=== PATIENT | female | born 1960 | race Caucasian/White ===

== ENCOUNTER → 2020-10-18 12:11 | Outpatient (BNVA) | payer OTHER, SELFPAY | PROVIDERS: Visit Provider Internal Medicine | DX: Z76.89 Persons encountering health services in other specified circumstances (principal) ==

== ENCOUNTER 2020-10-31 08:39 | Outpatient (REF) | payer OTHER, SELFPAY ==
[2020-10-31 10:25] LABS: Alanine Aminotransferase 23 U/L (0-31); Albumin Level 3.7 g/dL (3.5-5.0); Alkaline Phosphatase 262 U/L (39-117); Anion Gap 11 (12-20); Aspartate Amino Transferase 27 U/L (5-31); Bilirubin Total 0.3 mg/dL (0.0-1.0); Blood Urea Nitrogen 20 mg/dL (9-16); Carbon Dioxide 30 mmol/L (22-29); Chloride 100 mmol/L (96-108); Estimated Glomerular Filt Rate 52; Glucose Random 94 mg/dL (60-115); Potassium 4.4 mmol/l (3.3-5.1); Sodium 137 mmol/L (135-145); Total Protein 8.8 g/dL (6.5-8.0)
[2020-10-31 10:46] LABS: Vitamin D 25-OH Total 23.9 ng/mL (>30)
[2020-11-01 16:43] LABS: Calcium, Ionized 5.6 mg/dL (4.8-5.6)
[2020-11-02 16:03] LABS: Calcium (PTHI) 10.3 mg/dL (8.6-10.4); PTHI 3 pg/mL (14-64)
== END 2020-10-31 08:40 | disposition home or self-care (01) ==
LOC: HO.LAB 08:39
PROVIDERS: PCP Internal Medicine; Visit Provider Internal Medicine
DX: E83.52 Hypercalcemia (principal); E55.9 Vitamin D deficiency, unspecified
CPT/HCPCS: 80053; 82306; 82330; 83970

== ENCOUNTER → 2020-11-13 13:44 | Outpatient (BNVA) | payer OTHER, SELFPAY | PROVIDERS: Visit Provider Internal Medicine Cardiovascular Disease | DX: Z76.89 Persons encountering health services in other specified circumstances (principal) ==

== ENCOUNTER 2020-11-15 09:25 | Outpatient (REF) | payer OTHER, SELFPAY ==
[2020-11-15 10:41] LABS: Albumin Level 3.8 g/dL (3.5-5.0); Anion Gap 11 (12-20); Blood Urea Nitrogen 19 mg/dL (9-16); Calcium 10.2 mg/dL (8.4-10.2); Carbon Dioxide 32 mmol/L (22-29); Chloride 100 mmol/L (96-108); Estimated Glomerular Filt Rate 51; Glucose Random 105 mg/dL (60-115); Phosphorus 4.3 mg/dL (2.7-4.5); Potassium 4.4 mmol/l (3.3-5.1); Sodium 139 mmol/L (135-145)
[2020-11-15 10:53] LABS: Free T4 (Free Thyroxine) 0.85 ng/dL (0.71-1.85); Thyroid Stimulating Hormone 1.76 uIU/mL (0.32-4.0); Vitamin D 25-OH Total 24.1 ng/mL (>30)
[2020-11-16 12:52] LABS: Calcium (PTHI) 10.4 mg/dL (8.6-10.4); PTHI 4 pg/mL (14-64)
[2020-11-17 22:12] LABS: Prot Elec - Albumin 3.6 g/dL (3.8-4.8); Prot Elec - Alpha1 0.3 g/dL (0.2-0.3); Prot Elec - Alpha2 0.9 g/dL (0.5-0.9); Prot Elec - Beta 1 0.5 g/dL (0.4-0.6); Prot Elec - Beta 2 0.8 g/dL (0.2-0.5); Prot Elec - Gamma 2.5 g/dL (0.8-1.7); Prot Elec - Total Protein 8.6 g/dL (6.1-8.1)
[2020-11-20 11:22] LABS: VITAMIN D (1,25 OH) D3 69 pg/mL; Vit D (1,25-Dihydroxy) Total 69 pg/mL (18-72); Vitamin D (1,25 OH) D2 <8 pg/mL
[2020-11-20 21:53] LABS: Parathyroid Hormone Related Pr 11 pg/mL (14-27)
[2020-11-21 14:57] LABS: Vitamin A 38 mcg/dL (38-98)
[2020-11-22 14:43] LABS: Angiotensin Converting Enzyme 145 U/L (9-67)
== END 2020-11-15 09:26 | disposition home or self-care (01) ==
LOC: HO.LAB 09:25
PROVIDERS: PCP Internal Medicine; Visit Provider Internal Medicine
DX: E83.52 Hypercalcemia (principal)
CPT/HCPCS: 36415; 80048; 82040; 82164; 82306; 82652; 83519; 83970; 84100; 84155; 84165; 84439; 84443; 84590

== ENCOUNTER 2020-11-25 07:29 | Outpatient (REF) | payer OTHER, SELFPAY ==
[2020-11-25 08:29] LABS: Calcium 10.2 mg/dL (8.4-10.2); Estimated Glomerular Filt Rate > 60
[2020-11-29 06:22] LABS: VITAMIN D (1,25 OH) D3 77 pg/mL; Vit D (1,25-Dihydroxy) Total 77 pg/mL (18-72); Vitamin D (1,25 OH) D2 <8 pg/mL
[2020-12-04 06:21] LABS: Angiotensin Converting Enzyme 154 U/L (9-67)
== END 2020-11-25 07:30 | disposition home or self-care (01) ==
LOC: HO.LAB 07:29
PROVIDERS: PCP Internal Medicine; Visit Provider Internal Medicine
DX: D86.9 Sarcoidosis, unspecified (principal); E83.52 Hypercalcemia
CPT/HCPCS: 36415; 82164; 82310; 82565; 82652

== ENCOUNTER → 2020-12-14 11:41 | Outpatient (BNVA) | payer OTHER, SELFPAY | PROVIDERS: PCP Internal Medicine; Visit Provider Internal Medicine ==

== ENCOUNTER → 2021-01-25 15:30 | Outpatient (BNVA) | payer OTHER, SELFPAY | PROVIDERS: PCP Internal Medicine; Visit Provider Internal Medicine ==

== ENCOUNTER 2021-03-05 08:59 | Outpatient (REF) | payer OTHER, SELFPAY ==
--- NOTE | ~2021-03-05 | US_ITS ---
EXAMINATION: US THYROID CLINICAL INFORMATION: Nontoxic multinodular goiter. COMPARISON: Ultrasound soft tissues neck 02/29/2020. TECHNIQUE: Linear transducer grayscale and color Doppler examination with attention to the region of the thyroid. FINDINGS: SIZE: Measurements of the thyroid lobes and nodules are given in sagittal, anteroposterior and transverse dimensions respectively. Right Thyroid Lobe: 5.8 x 2.9 x 2.3 cm, volume 20.2 mL. Previously 5.5 x 2.6 x 2.5 cm, volume 19.1 mL. Parenchyma: The gland echotexture is heterogeneous. Thyroid vascularity is increased. Left Thyroid Lobe: 4.8 x 1.6 x 1.7 cm, volume 6.8 mL. Previously 5.0 x 1.9 x 1.6 cm, volume 7.8 mL. Parenchyma: The gland echotexture is heterogeneous. Thyroid vascularity is normal. Isthmus: 0.4 cm in maximum AP dimension. Previously 0.7 cm. Estimated total number of nodules greater than or equal to 1 cm: 4. Roving Frame Tender nodules are described as follows: 1. Location: Right Upper Size: 1.6 x 1.0 x 1.3 cm, volume 1.1 mL. Previously: 1.4 x 1.1 x 1.1 cm, volume 0.9 mL. Nodule characteristics: Composition: Mixed cystic and solid (1). Echogenicity: Cannot be determined (1). Shape: Not taller than wide (0). Margins: Smooth (0). Echogenic Foci: None (0. ACR TI-RADS total points: 2 ACR TI-RADS category: 2 Significant change in size (>/= 20% in 2 dimensions and minimal increase of 2 mm or 50% or greater increase in volume): None Change in features: None Change in ACR TI-RADS risk category: None 2. Location: Right Mid. Size: 1.5 x 1.4 x 1.7 cm, volume 1.8 mL. Previously: 1.4 x 1.0 x 1.5 cm, volume 1.1 mL. Nodule characteristics: Composition: Solid (2). Echogenicity: Hyperechoic (1). Shape: Not taller than wide (0). Margins: Smooth (0). Echogenic Foci: None (0). ACR TI-RADS total points: 3 ACR TI-RADS category: 3 Significant change in size (>/= 20% in 2 dimensions and minimal increase of 2 mm or 50% or greater increase in volume): None Change in features: None Change in ACR TI-RADS risk category: None 3. Location: Lower pole mid right. Size: 3.3 x 1.8 x 3.7 cm, volume 11.9 mL. Previously: 3.3 x 1.8 x 2.7 cm, volume 8.4 mL. Nodule characteristics: Composition: Mixed cystic and solid (1). Echogenicity: Hyperechoic (1). Shape: Not taller than wide (0). Margins: Smooth (0). Echogenic Foci: None (0). ACR TI-RADS total points: 2 ACR TI-RADS category: 2 Significant change in size (>/= 20% in 2 dimensions and minimal increase of 2 mm or 50% or greater increase in volume): None Change in features: None Change in ACR TI-RADS risk category: None 4. Location: Left lower pole. Size: 1.7 x 0.9 x 1.4 cm, volume 1.1 mL. Previously: 1.6 x 1.2 x 1.2 cm, volume 1.2 mL. Nodule characteristics: Composition: Solid (2). Echogenicity: Hyperechoic (1). Shape: Not taller than wide (0). Margins: Irregular (2). Echogenic Foci: None (0). ACR TI-RADS total points: 5 ACR TI-RADS category: 4 Significant change in size (>/= 20% in 2 dimensions and minimal increase of 2 mm or 50% or greater increase in volume): None Change in features: None Change in ACR TI-RADS risk category: None NODES: No lymphadenopathy is seen in the tissue surrounding the thyroid gland. US/US thyroid IMPRESSION: Heterogeneous hypervascular thyroid gland and multiple right and a solitary left thyroid nodule which are stable. The largest nodule is hypervascular. ACR TI-RADS RECOMMENDATION REFERENCE: Ultrasound-guided fine-needle aspiration, followup ultrasound, no further follow up. * TR1 (0 point) and TR 2 (2 points): No FNA or follow up * TR3 (3 points): FNA if more than or equal to 2.5 cm in maximum dimension, followup ultrasound in 1, 3 and 5 years if 1.5 to 2.4 cm in maximum dimension. * TR4 (4-6 points): FNA if more than or equal to 1.5 cm in maximum dimension, followup ultrasound in 1, 2, 3 and 5 years if 1 to 1.4 cm in maximum dimension. * TR5 (more than or equal to 7 points): FNA if more than or equal to 1 cm in maximum dimension, followup ultrasound every year for 5 years if 0.5 to 0.9 cm in maximum dimension. * TR3, TR4 or TR5 nodules that are below the size threshold for follow up receive no follow up.
== END 2021-03-05 09:00 | disposition home or self-care (01) ==
LOC: HO.US 08:59
PROVIDERS: Visit Provider Internal Medicine
DX: E04.2 Nontoxic multinodular goiter (principal)
CPT/HCPCS: 76536

== ENCOUNTER → 2021-04-12 11:50 | Outpatient (BNVA) | payer OTHER, SELFPAY | PROVIDERS: PCP Internal Medicine; Visit Provider Internal Medicine ==

== ENCOUNTER → 2021-04-17 09:23 | Outpatient (REF) | payer OTHER, SELFPAY ==
--- NOTE | 2021-04-17 09:28 | CA_ITS ---
Transthoracic Echocardiogram Patient (Last, First, Middle): Emilia Levy S Gender: Female Date of : 1960 Age: 61 Procedure Date: 04/17/2021 Procedure Type: Transthoracic Echocardiogram Location: OP Height: 157.48 cm Weight: 81.65 kg BSA: 1.83 m2 Heart Rate: bpm BP: 124 / 60 mmHg Make Up Worker: Referring MD: Abe Sagastume MD Symptoms: Z95.0 - Presence of cardiac pacemaker Study Quality: Fair ECG Rhythm: Ventriculary paced rhythm Conclusions: - Visually estimated LVEF about 50%. - There is mildly increased left ventricular wall thickness. - No obvious valvular pathology seen on this study. Findings Left Ventricle Normal left ventricular cavity size. There is mildly increased left ventricular wall thickness. The left ventricular systolic function is mildly decreased. There is paradoxical septal motion consistent with a right ventricular pacemaker. E/E prime ratio is between 8 and 15 consistent with indeterminate filling pressures. Evidence suggests grade I (mild) diastolic dysfunction. Visually estimated LVEF about 50%. Right Ventricle Normal right ventricular cavity size and systolic function. There is a pacemaker wire seen in the right ventricle. Atria The left atrium is normal in size. The right atrium is normal in size. Aortic Valve There is a normal trileaflet aortic valve. There is no aortic valve stenosis. There is no aortic valve regurgitation. Mitral Valve The mitral valve appears normal. There is trace mitral valve regurgitation. There is no mitral valve stenosis. Pulmonic Valve The pulmonic valve was not well visualized. Tricuspid Valve Normal tricuspid valve structure. There is mild tricuspid valve regurgitation. The pulmonary artery systolic pressure is normal. Great Vessels The asc aorta is normal in size. Venous The inferior vena cava is normal in size and collapses greater than 50% with inspiration. Pericardium/Pleural There is no evidence of pericardial effusion. Prior Study Comparison No significant change compared to prior study dated: 02/29/2020. Recommendations, Care & Conclusions No obvious valvular pathology seen on this study. Measurements 2D Linear Measurements IVSd: 1.27 0.6-0.9/0.6-1.0 cm LVIDd: 4.49 3.9-5.3/4.2-5.9 cm LVIDd Index: 2.45 2.4-3.2/2.2-3.1 cm/m2 LVIDs: 2.88 2.0-3.6 cm LVPWd: 1.24 0.7-1.1 cm Ao Root: 2.70 2.1-3.5 cm LA Diam: 3.50 2.7-3.8/3.0-4.0 cm LAIDs Index: 1.91 1.5-2.3 cm/m2 LV Mass: 262.58 67-162/88-224 g LV Mass Index: 143.49 43-95/49-115 g/m2 LVOT Diam: 2.20 3.0+(-)1.3 cm 2D Systolic Function EF 4C: 53.10 >55% EF 2C: 44.40 >55% EF BiP: 50.00 >55% Mitral Valve MV Pk E: 0.84 MV PK A: 0.78 MV Decel Time: 142.00 E/A: 1.10 E'Lateral: 7.29 E'Medial: 4.57 E/E' Med: 18.30 E/E' Lat: 11.50 PHT: 42.00 MVA PHT: 5.24 Decel [place]: 5.89 Aortic Valve AoV Pk Roger: 1.26 AoV Mn Roger: 0.80 AoV VTI: 0.25 AoV Pk Grad: 6.00 Aov Mn Grad: 3.00 KATI Cont.VTI: 2.62 LVOT LVOT Pk Roger: 0.81 LVOT Mn Roger: 0.54 LVOT VTI: 0.17 LVOT Pk Grad: 3.00 LVOT Mn Grad: 1.00 LVOT Diam: 2.20 LVOT Area: 3.80 Diastolic Function MV Pk E: 0.84 MV Pk A: 0.78 E/A: 1.10 E'Medial: 4.57 E/E' Med: 18.30 E' Laterial: 7.29 E/E' Lat: 11.50 Tricuspid Valve TR Pk Roger: 2.39 TR Pk Grad: 23.00 RA Press: 3.00 RVSP: 26.00 Great Vessels Aorta Ao Root-2D: 2.70 2.0-3.7 cm Ao Asc: 3.10 2.1-3.4 cm Pulmonary Valve PV Pk Roger: 0.91 Peak PV Grad: 3.00 Updated in Other Vendor System with Status of Final Nelson Woodard MD electronically signed on 04/17/2021 2:20:00 PM with status of Final
== END ==
LOC: HO.CARD 09:23
PROVIDERS: Visit Provider Internal Medicine Cardiovascular Disease
DX: Z95.0 Presence of cardiac pacemaker (principal)
CPT/HCPCS: 93306

== ENCOUNTER → 2021-05-08 15:00 | Outpatient (BNVA) | payer OTHER, SELFPAY | PROVIDERS: PCP Internal Medicine; Visit Provider Internal Medicine Cardiovascular Disease ==

== ENCOUNTER 2021-06-18 14:52 | Outpatient (REF) | payer OTHER, SELFPAY ==
--- NOTE | ~2021-06-18 | US_ITS ---
EXAMINATION: US THYROID CLINICAL INFORMATION: Nontoxic multinodular goiter. COMPARISON: Ultrasound soft tissue head/neck thyroid dated 03/05/2021 and 02/29/2020. TECHNIQUE: Linear transducer grayscale and color Doppler examination with attention to the region of the thyroid. FINDINGS: SIZE: Measurements of the thyroid lobes and nodules are given in sagittal, anteroposterior and transverse dimensions respectively. Right Thyroid Lobe: 5.9 x 3.1 x 3.1 cm, volume 29.7 mL. Previously 5.8 x 2.9 x 2.3 cm, volume 20.2 mL. Parenchyma: The gland echotexture is heterogeneous. Thyroid vascularity is increased. Left Thyroid Lobe: 4.4 x 1.6 x 1.4 cm, volume 5.2 mL. Previously 4.8 x 1.6 x 1.7 cm, volume 6.8 mL. Parenchyma: The gland echotexture is heterogeneous. Thyroid vascularity is increased. Isthmus: 0.7 cm in maximum AP dimension. Previously 0.4 cm. Estimated total number of nodules greater than or equal to 1 cm: 4. [place]et Bucker nodules are described as follows: 1. Location: Left mid. Size: 1.2 x 0.6 x 1.0 cm, volume 0.4 mL. Previously: 1.7 x 0.9 x 1.4 cm, volume 1.1 mL. Nodule characteristics: Composition: Solid/almost completely solid (2). Echogenicity: Hypoechoic (2). Shape: Not taller than wide (0). Margins: Ill-defined (0). Echogenic Foci: None (0). ACR TI-RADS total points: 4 Previous: 5 ACR TI-RADS category: 4 Previous: 4 Significant change in size (>/= 20% in 2 dimensions and minimal increase of 2 mm or 50% or greater increase in volume): Change in features: Change in ACR TI-RADS risk category: No 2. Location: Right superior. Size: 1.5 x 1.0 x 1.3 cm, volume 1.0 mL. Previously: 1.6 x 1.0 x 1.3 cm, volume 1.1 mL. Nodule characteristics: Composition: Solid (2). Echogenicity: Isoechoic (1). Shape: Not taller than wide (0). Margins: Smooth (0). Echogenic Foci: None (0). ACR TI-RADS total points: 3 Previous: 2 ACR TI-RADS category: 3 Previous: 2 Significant change in size (>/= 20% in 2 dimensions and minimal increase of 2 mm or 50% or greater increase in volume): Change in features: Change in ACR TI-RADS risk category: Yes 3. Location: Right mid. Size: 1.5 x 1.3 x 2.0 cm, volume 2.0 mL. Previously: 1.5 x 1.4 x 1.7 cm, volume 1.8 mL. Nodule characteristics: Composition: Solid/almost completely solid (2). Echogenicity: Isoechoic (1). Shape: Not taller than wide (0). Margins: Smooth (0). Echogenic Foci: None (0). ACR TI-RADS total points: 3 Previous: 3 ACR TI-RADS category: 3 Previous: 3 Significant change in size (>/= 20% in 2 dimensions and minimal increase of 2 mm or 50% or greater increase in volume): Change in features: Change in ACR TI-RADS risk category: No 4. Location: Right inferior. Size: 3.4 x 1.9 x 3.3 cm, volume 11.0 mL. Previously: 3.3 x 1.8 x 3.7 cm, volume 8.4 mL. Nodule characteristics: Composition: Solid (2). Echogenicity: Isoechoic (1). Shape: Not taller than wide (0). Margins: Smooth (0). Echogenic Foci: None (0). ACR TI-RADS total points: 3 Previous: 2 ACR TI-RADS category: 3 Previous: 2 Significant change in size (>/= 20% in 2 dimensions and minimal increase of 2 mm or 50% or greater increase in volume): Change in features: Change in ACR TI-RADS risk category: Yes NODES: No lymphadenopathy is seen in the tissue surrounding the thyroid gland. US/US thyroid IMPRESSION: Heterogeneous hypervascular thyroid gland. The right lobe is enlarged. There is no change in the bilateral thyroid nodules.. ACR TI-RADS RECOMMENDATION REFERENCE: Ultrasound-guided fine-needle aspiration, followup ultrasound, no further follow up. * TR1 (0 point) and TR 2 (2 points): No FNA or follow up * TR3 (3 points): FNA if more than or equal to 2.5 cm in maximum dimension, followup ultrasound in 1, 3 and 5 years if 1.5 to 2.4 cm in maximum dimension. * TR4 (4-6 points): FNA if more than or equal to 1.5 cm in maximum dimension, followup ultrasound in 1, 2, 3 and 5 years if 1 to 1.4 cm in maximum dimension. * TR5 (more than or equal to 7 points): FNA if more than or equal to 1 cm in maximum dimension, followup ultrasound every year for 5 years if 0.5 to 0.9 cm in maximum dimension. * TR3, TR4 or TR5 nodules that are below the size threshold for follow up receive no follow up.
== END 2021-06-18 14:53 | disposition home or self-care (01) ==
LOC: HO.US 14:52
PROVIDERS: Visit Provider Internal Medicine
DX: E04.2 Nontoxic multinodular goiter (principal)
CPT/HCPCS: 76536

== ENCOUNTER → 2021-10-30 13:01 | Outpatient (BNVA) | payer OTHER, SELFPAY | PROVIDERS: PCP Internal Medicine; Referring Provider Internal Medicine; Visit Provider Internal Medicine Cardiovascular Disease ==

== ENCOUNTER 2021-12-05 09:14 | Outpatient (REF) | payer OTHER, SELFPAY ==
--- NOTE | ~2021-12-05 | XR_ITS ---
EXAMINATION: XR SHOULDER, LEFT CLINICAL INFORMATION: Sarcoidosis. COMPARISON: Chest x-ray dated 12/05/2021 TECHNIQUE: AP external rotation, Grashey, scapular Y, and axillary views of the left shoulder. FINDINGS: The bones and soft tissues are normal. No fracture. Glenohumeral and acromioclavicular alignment is anatomic with normal joint space. No abnormal soft tissue calcifications. Imaged left lung shows diffuse bronchovascular prominence XR/XR shoulder LT min 2V IMPRESSION: * No acute fracture or dislocation. * No suspicious osseous lesions. * Diffuse prominence of pulmonary parenchymal interstitium. Recommend dedicated departmental radiographs of the chest
[2021-12-05 11:32] LABS: Hematocrit 41.3 % (37.0-47.0); Mean Corpuscular HGB Conc 31.5 g/dl (31.0-35.0); Mean Corpuscular Hemoglobin 27.1 pg (27.0-33.0); Mean Platelet Volume 10.9 fL (9.4-12.3); Platelet Count 361 X10*3/uL (160-400); Red Cell Distribution Width 14.2 % (11.0-16.0); White Blood Count 5.9 X10*3/uL (4.8-10.8)
[2021-12-05 12:03] LABS: Estimated Average Glucose 114 mg/dL; Hemoglobin A1C 148.6826 umol/L; Hemoglobin A1c % 5.6 %
[2021-12-05 12:05] LABS: Vitamin D 25-OH Total 30.7 ng/mL (>30)
[2021-12-05 12:18] LABS: Thyroid Stimulating Hormone 1.66 uIU/mL (0.32-4.0)
[2021-12-05 12:29] LABS: Alanine Aminotransferase 32 U/L (0-31); Albumin Level 4.1 g/dL (3.5-5.0); Alkaline Phosphatase 223 U/L (39-117); Anion Gap 13 (12-20); Aspartate Amino Transferase 31 U/L (5-31); Bilirubin Total 0.5 mg/dL (0.0-1.0); Blood Urea Nitrogen 13 mg/dL (9-16); Calcium 9.8 mg/dL (8.4-10.2); Carbon Dioxide 30 mmol/L (22-29); Chloride 102 mmol/L (96-108); Cholesterol 199 mg/dL; Estimated Glomerular Filt Rate > 60; Glucose Fasting 100 mg/dL (60-99); HDL Cholesterol 53 mg/dL; LDL Cholesterol Calculated 122 mg/dl; Potassium 4.6 mmol/L (3.3-5.1); Sodium 140 mmol/L (135-145); Total Protein 9.1 g/dL (6.5-8.0); Triglycerides 124 mg/dL
== END 2021-12-05 09:15 | disposition home or self-care (01) ==
LOC: HO.HMGCLDS 09:14
PROVIDERS: Internal Medicine; Visit Provider Internal Medicine
DX: D86.9 Sarcoidosis, unspecified (principal); E04.2 Nontoxic multinodular goiter; R19.5 Other fecal abnormalities; M25.512 Pain in left shoulder
CPT/HCPCS: 36415; 73030; 80053; 80061; 82306; 83036; 84439; 84443; 85027

== ENCOUNTER → 2022-03-06 13:03 | Outpatient (REF) | payer OTHER, SELFPAY ==
--- NOTE | 2022-03-06 13:08 | CA_ITS ---
Transthoracic Echocardiogram Patient (Last, First, Middle): Emilia Levy S Gender: Female Date of : 1960 Age: 61 Procedure Date: 03/06/2022 Procedure Type: Transthoracic Echocardiogram Location: OP Height: 157.48 cm Weight: 79.38 kg BSA: 1.81 m2 Heart Rate: bpm BP: 140 / 86 mmHg Workforce Development Specialist: ROBERT Referring MD: Abe Sagastume MD Symptoms: I42.9 - Cardiomyopathy, unspecified Study Quality: Fair Conclusions: - 1. Normal LV systolic function with impaired relaxation filling pattern 2. Normal cardiac valvular Doppler 3. Normal RV systolic pressure 4. No gross pericardial effusion Findings Left Ventricle Normal left ventricular size, thickness, and systolic function. The visually estimated ejection fraction is between 55-60%. There is paradoxical septal motion consistent with a right ventricular pacemaker. Spectral Doppler is indicative of an impaired relaxation filling pattern. E/E prime ratio is between 8 and 15 consistent with indeterminate filling pressures. Right Ventricle Normal right ventricular cavity size and systolic function. There is a pacemaker wire seen in the right ventricle. Atria The left atrium is likely dilated. The right atrium is normal in size. A pacemaker wire is identified in the right atrium. Aortic Valve Normal aortic valve structure and function. There is no aortic valve stenosis. There is no aortic valve regurgitation. Mitral Valve Normal mitral valve structure and function. There is trace mitral valve regurgitation. There is no mitral valve stenosis. Pulmonic Valve The pulmonic valve was not well visualized. Tricuspid Valve Likely normal tricuspid valve structure and function. There is mild tricuspid valve regurgitation. The right ventricular systolic pressure is normal. The right ventricular systolic pressure is 25 mmHg. Normal right atrial pressure. There is no evidence of pulmonary hypertension. Great Vessels All visible segments of the aorta are normal in size. The pulmonary artery was not well visualized. Venous The inferior vena cava is normal in size and collapses greater than 50% with inspiration. Pericardium/Pleural There is no evidence of pericardial effusion. Prior Study Comparison Changes noted compared to prior study dated: 04/17/2021. LV systolic function is in normal range Measurements 2D Linear Measurements IVSd: 0.98 0.6-0.9/0.6-1.0 cm LVIDd: 4.24 3.9-5.3/4.2-5.9 cm LVIDd Index: 2.34 2.4-3.2/2.2-3.1 cm/m2 LVIDs: 2.67 2.0-3.6 cm LVPWd: 1.08 0.7-1.1 cm LA Diam: 3.70 2.7-3.8/3.0-4.0 cm LAIDs Index: 2.04 1.5-2.3 cm/m2 LV Mass: 218.36 67-162/88-224 g LV Mass Index: 120.64 43-95/49-115 g/m2 LVOT Diam: 2.10 3.0+(-)1.3 cm 2D Systolic Function EF 4C: 59.10 >55% EF 2C: 59.30 >55% EF BiP: 60.80 >55% Mitral Valve MV Pk E: 0.92 MV PK A: 0.90 MV Decel Time: 227.00 E/A: 1.00 E'Lateral: 6.09 E'Medial: 4.46 E/E' Med: 20.60 E/E' Lat: 15.10 PHT: 66.00 MVA PHT: 3.33 Decel Shoshone: 4.05 Aortic Valve AoV Pk Roger: 1.57 AoV Mn Roger: 1.20 AoV VTI: 0.36 AoV Pk Grad: 10.00 Aov Mn Grad: 6.00 KATI Cont.VTI: 2.31 LVOT LVOT Pk Roger: 1.02 LVOT Mn Roger: 0.75 LVOT VTI: 0.24 LVOT Pk Grad: 4.00 LVOT Mn Grad: 2.00 LVOT Diam: 2.10 LVOT Area: 3.46 Diastolic Function MV Pk E: 0.92 MV Pk A: 0.90 E/A: 1.00 E'Medial: 4.46 E/E' Med: 20.60 E' Laterial: 6.09 E/E' Lat: 15.10 Right Ventricle TAPSE (mm): 18.90 TVS' Roger: 12.10 Tricuspid Valve TR Pk Roger: 2.32 TR Pk Grad: 22.00 RA Press: 3.00 RVSP: 25.00 Great Vessels Aorta Sinus of Valsalva: 3.10 2.0-3.[address] Ridge: 2.46 1.7-3.4 cm Ao Asc: 2.90 2.1-3.4 cm Ao Arch: 2.70 Updated in Other Vendor System with Status of Final Abe Sagastume MD electronically signed on 03/07/2022 12:32:59 PM with status of Final
== END ==
LOC: HO.CARD 13:03
PROVIDERS: PCP Internal Medicine; Visit Provider Internal Medicine Cardiovascular Disease
DX: I42.9 Cardiomyopathy, unspecified (principal)
CPT/HCPCS: 93306

== ENCOUNTER → 2022-05-07 12:38 | Outpatient (BNVA) | payer OTHER, SELFPAY | PROVIDERS: PCP Internal Medicine; Referring Provider Internal Medicine; Visit Provider Internal Medicine Cardiovascular Disease | DX: Z45.018 Encounter for adjustment and management of other part of cardiac pacemaker (principal) | CPT/HCPCS: 93280 ==

== ENCOUNTER → 2023-05-08 08:57 | Outpatient (BNVA) | payer OTHER, SELFPAY | PROVIDERS: PCP Internal Medicine; Referring Provider Internal Medicine; Visit Provider Internal Medicine Cardiovascular Disease | DX: I42.9 Cardiomyopathy, unspecified (principal); Z95.0 Presence of cardiac pacemaker | CPT/HCPCS: 93005; 93280 ==

== ENCOUNTER → 2023-07-31 23:59 | Outpatient (BNV) | payer OTHER, SELFPAY ==
--- NOTE | 2023-07-31 11:17 | A.OFFVIS_ITS ---
Intake Intake Visit Reasons: Remote Device Check- [facility] Allergies No Known Allergies [No Known Allergies*] Allergy (Verified 01/28/22 10:45) PFSH Medical History Abnormal echocardiogram Abnormal SPEP Abnormal x-ray Annual physical exam Cardiac pacemaker in situ Complete heart block Hypercalcemia Left shoulder pain Multinodular thyroid Vitamin D deficiency Surgical History Hx of cardiac pacemaker Hx of cholecystectomy Hx of tubal ligation Family History Mother Diabetes CVD (cardiovascular disease) Stroke Myocardial infarction Maternal Grandmother Diabetes Father Unknown family medical history Social History Housing: Apartment Are you a primary health care marketing specialist to a significant other at home: No Alcohol intake: current Alcohol intake frequency: holidays/special occasions only Patient Tobacco Use Status: Never used Tobacco e-Cigarette/Vaping Use: Never Used Current occupational status: unemployed Office Procedures Cardiac Device Check Cardiac Device Check Details: Remote pacemaker report generated 07/31/2023. Pacemaker function is adequate [id number] Cardiac Device Interrogation, pacemaker Procedure code (CPT) selection complete Coding Level of Care Code Procedure Only CPT Codes Cardiac Device Check - Cardiac Device 12: [id number] Cardiac Device Interrogation, pacemaker ([id number])
== END ==
PROVIDERS: PCP Internal Medicine; Visit Provider Internal Medicine Cardiovascular Disease
DX: I42.9 Cardiomyopathy, unspecified (principal); Z95.0 Presence of cardiac pacemaker
CPT/HCPCS: 93294

== ENCOUNTER 2023-10-10 11:53 | Outpatient (AMB) | payer OTHER, SELFPAY ==
[2023-10-10 11:59] VITALS: BP 140/80; PULSE 78; TEMP 36.8; O2SAT 98; BMI 35.8
--- NOTE | 2023-10-10 11:59 | AM.OFFWIN_ITS ---
Intake Vital Signs 10/10/23 11:59 Height 5 ft 2 in Weight 196 lb BMI 35.8 BP 140/80 H Blood Pressure Location Rt brachial Position Sitting Pulse 78 Pulse Source Pulse Oximeter Temp 98.3 F Temp Source Temporal Artery Scan Pulse Oximetry (%) 98 Oxygen Delivery Method Room Air Intake Visit Reasons: EP Cough 3 weeks Intake Note: pt is here for c/o cough for 3 weeks Patient Tobacco Use Status: Never used Tobacco Allergies No Known Allergies [No Known Allergies*] Allergy (Verified 10/10/23 12:21) Medication List - Last Reconciled 10/10/23 by Anthony Ortiz MD azithromycin take 500 mg today (day 1), then 250 mg for 4 days (days 2-5) PO cholecalciferol (vitamin D3) 25 mcg PO DAILY metoprolol tartrate 25 mg PO DAILY multivitamin (Daily Multi-Vitamin tablet) 1 tab PO DAILY omega-3 fatty acids 1,000 mg PO DAILY pravastatin 40 mg PO DAILY prednisone 60 mg (3 x 20 mg) PO DAILY Do you need a note to return to daycare/school/sports/work: Yes HPI EP Cough 3 weeks HPI Details Patient presents for a sick visit. Reporting symptoms of sinus conges tion, sore throat and difficulty swallowing. Low-grade fever. No family member is sick. No recent travel. Patient reports symptoms of malaise and fatigue. PENDING SALE TO [facility] Medical History Abnormal echocardiogram Abnormal SPEP Abnormal x-ray Annual physical exam Cardiac pacemaker in situ Complete heart block Hypercalcemia Left shoulder pain Multinodular thyroid Vitamin D deficiency Surgical History Hx of cardiac pacemaker Hx of cholecystectomy Hx of tubal ligation Family History Mother Diabetes CVD (cardiovascular disease) Stroke Myocardial infarction Maternal Grandmother Diabetes Father Unknown family medical history Housing: Apartment Are you a primary career center director to a significant other at home: No Alcohol intake: current Alcohol intake frequency: holidays/special occasions only Patient Tobacco Use Status: Never used Tobacco e-Cigarette/Vaping Use: Never Used Current occupational status: unemployed Physical Exam Vital Signs: Last Vital Signs Temp 98.3 F 10/10/23 11:59 Pulse 78 10/10/23 11:59 BP 140/80 H 10/10/23 11:59 Pulse Ox 98 10/10/23 11:59 Oxygen Delivery Method Room Air 10/10/23 11:59 BMI result Body Mass Index 35.8 Const General: cooperative and healthy appearing Nutritional Appearance: well nourished Orientation/consciousness: patient oriented x3 Limitations: no limitations HEENT Head: Yes normal to inspection Eyes General: appearance normal, both eyes and all related structures Neck Neck: Yes normal visual inspection Chest Chest palpation & inspection: normal palpation of entire chest wall Resp Effort & Inspection: normal respiratory effort Neuro General: patient oriented x3 Assessment & Plan Assessment & Plan (1) Upper respiratory tract infection: Code(s): J06.9 - Acute upper respiratory infection, unspecified Plan: Antibiotics ordered. Increase fluid intake. Tylenol for aches and pains. If symptoms worsen, follow-up here for a recheck. Medications: New azithromycin take 500 mg today (day 1), then 250 mg for 4 days (days 2-5) PO 6 tabs 0RF prednisone 60 mg (3 x 20 mg) PO DAILY 9 tabs 0RF Coding Level of Care Code Est Pt Level 3 (07784) Diagnoses Upper respiratory tract infection J06.9
== END 2023-10-10 12:44 | disposition home or self-care (01) ==
PROVIDERS: PCP Internal Medicine; Visit Provider Internal Medicine
DX: J06.9 Acute upper respiratory infection, unspecified (principal)
CPT/HCPCS: 99213

== ENCOUNTER 2023-10-10 12:53 | Outpatient (REF) | payer OTHER, SELFPAY ==
[2023-10-10 14:21] LABS: Influenza A PCR NEGATIVE (Negative); Influenza B PCR NEGATIVE (Negative); Resp Syncy Virus RNA Qual PCR NEGATIVE (Negative); SARS COV2 PCR INHOUSE NEGATIVE (Negative)
== END 2023-10-10 12:54 | disposition home or self-care (01) ==
LOC: HO.LNP 12:53
PROVIDERS: Visit Provider Internal Medicine
DX: Z11.52 Encounter for screening for COVID-19 (principal); R09.89 Other specified symptoms and signs involving the circulatory and respiratory systems; Z20.822 Contact with and (suspected) exposure to COVID-19
CPT/HCPCS: 0241U

== ENCOUNTER → 2023-10-30 23:59 | Outpatient (BNV) | payer OTHER, SELFPAY ==
--- NOTE | 2023-10-30 10:31 | MHC.OFFVIS ---
Intake Intake Visit Reasons: Remote Device Check- [facility] Allergies No Known Allergies [No Known Allergies*] Allergy (Verified 10/10/23 12:21) PFSH Medical History Abnormal echocardiogram Abnormal SPEP Abnormal x-ray Annual physical exam Cardiac pacemaker in situ Complete heart block Hypercalcemia Left shoulder pain Multinodular thyroid Vitamin D deficiency Surgical History Hx of cardiac pacemaker Hx of cholecystectomy Hx of tubal ligation Family History Mother Diabetes CVD (cardiovascular disease) Stroke Myocardial infarction Maternal Grandmother Diabetes Father Unknown family medical history Social History Housing: Apartment Are you a primary manager intensive care unit to a significant other at home: No Alcohol intake: current Alcohol intake frequency: holidays/special occasions only Patient Tobacco Use Status: Never used Tobacco e-Cigarette/Vaping Use: Never Used Current occupational status: unemployed Office Procedures Cardiac Device Check Cardiac Device Check Details: Remote pacemaker report generated 10/30/2023. Pacemaker function is adequate. Two episodes of high ventricular rate which are suggestive of pacemaker mediated tachycardia [id number] Cardiac Device Interrogation, pacemaker Procedure code (CPT) selection complete Assessment & Plan Assessment & Plan (1) Cardiac pacemaker in situ: Comment: Dual-chamber [facility] pacemaker for complete heart block Code(s): Z95.0 - Presence of cardiac pacemaker Plan: See above Coding Level of Care Code Procedure Only Diagnoses Cardiac pacemaker in situ Z95.0 CPT Codes Cardiac Device Check - Cardiac Device 12: [id number] Cardiac Device Interrogation, pacemaker ([id number])
== END ==
PROVIDERS: PCP Internal Medicine; Visit Provider Internal Medicine Cardiovascular Disease
DX: I42.9 Cardiomyopathy, unspecified (principal); Z95.0 Presence of cardiac pacemaker
CPT/HCPCS: 93294

== ENCOUNTER → 2024-01-29 23:59 | Outpatient (BNV) | payer OTHER, SELFPAY ==
--- NOTE | 2024-01-29 18:27 | A.OFFVIS_ITS ---
Intake Intake Visit Reasons: Remote Device Check- [facility] Allergies No Known Allergies [No Known Allergies*] Allergy (Verified 10/10/23 12:21) PFSH Medical History Abnormal echocardiogram Abnormal SPEP Abnormal x-ray Annual physical exam Cardiac pacemaker in situ Complete heart block Hypercalcemia Left shoulder pain Multinodular thyroid Vitamin D deficiency Surgical History Hx of cardiac pacemaker Hx of cholecystectomy Hx of tubal ligation Family History Mother Diabetes CVD (cardiovascular disease) Stroke Myocardial infarction Maternal Grandmother Diabetes Father Unknown family medical history Social History Housing: Apartment Are you a primary housekeeper caregiver to a significant other at home: No Alcohol intake: current Alcohol intake frequency: holidays/special occasions only Patient Tobacco Use Status: Never used Tobacco e-Cigarette/Vaping Use: Never Used Current occupational status: unemployed Office Procedures Cardiac Device Check Cardiac Device Check Details: Remote implantable loop recorder report generated 01/29/2024. Pacemaker function is adequate. Ventricularly pacer dependent [id number] Cardiac Device Interrogation, pacemaker Procedure code (CPT) selection complete Assessment & Plan Assessment & Plan (1) Cardiac pacemaker in situ: Comment: Dual-chamber [facility] pacemaker for complete heart block Code(s): Z95.0 - Presence of cardiac pacemaker Plan: See above Coding Level of Care Code Procedure Only Diagnoses Cardiac pacemaker in situ Z95.0 CPT Codes Cardiac Device Check - Cardiac Device 12: [id number] Cardiac Device Interrogation, pacemaker ([id number])
== END ==
PROVIDERS: PCP Internal Medicine; Visit Provider Internal Medicine Cardiovascular Disease
DX: I44.2 Atrioventricular block, complete (principal); Z95.0 Presence of cardiac pacemaker
CPT/HCPCS: 93294

== ENCOUNTER → 2024-04-29 23:59 | Outpatient (BNV) | payer OTHER, SELFPAY ==
--- NOTE | 2024-05-03 13:37 | A.OFFVIS_ITS ---
Intake Visit Reasons: Remote Device Check- [facility] Allergies No Known Allergies [No Known Allergies*] Allergy (Verified 10/10/23 12:21) PFSH Medical History Abnormal echocardiogram Abnormal SPEP Abnormal x-ray Annual physical exam Cardiac pacemaker in situ Complete heart block Hypercalcemia Left shoulder pain Multinodular thyroid Vitamin D deficiency Surgical History Hx of cardiac pacemaker Hx of cholecystectomy Hx of tubal ligation Family History Mother Diabetes CVD (cardiovascular disease) Stroke Myocardial infarction Maternal Grandmother Diabetes Father Unknown family medical history Social History Housing: Apartment Are you a primary home health aide caregiver to a significant other at home: No Alcohol intake: current Alcohol intake frequency: holidays/special occasions only Patient Tobacco Use Status: Never used Tobacco e-Cigarette/Vaping Use: Never Used Current occupational status: unemployed Office Procedures Cardiac Device Check Cardiac Device Check Details: Remote pacemaker report generated 04/29/2024. Pacemaker function is adequate. Ventricular pacing 100% of time [id number] Cardiac Device Interrogation, pacemaker Procedure code (CPT) selection complete Assessment & Plan Assessment & Plan (1) Cardiac pacemaker in situ: Comment: Dual-chamber [facility] pacemaker for complete heart block Code(s): Z95.0 - Presence of cardiac pacemaker Category: Medical Plan: see above Coding Level of Care Code Procedure Only Diagnoses Cardiac pacemaker in situ Z95.0 CPT Codes Cardiac Device Check - Cardiac Device 12: [id number]-[id number] Cardiac Device Interrogation, pacemaker ([id number])
== END ==
PROVIDERS: PCP Internal Medicine; Visit Provider Internal Medicine Cardiovascular Disease
DX: I44.2 Atrioventricular block, complete (principal); Z95.0 Presence of cardiac pacemaker
CPT/HCPCS: 93294

== ENCOUNTER 2024-05-06 08:30 | Outpatient (AMB) | payer OTHER, SELFPAY ==
--- NOTE | 2024-05-06 08:43 | MHC.OFFVIS ---
Vital Signs 05/06/24 08:44 Height 5 ft 2 in Weight 180 lb 12.465 oz BMI 33.1 BP 120/80 Blood Pressure Location Lt brachial Position Sitting Pulse 60 Intake Visit Reasons: 1 year follow up Intake Note: 1 year follow-up with ekg and [facility] c/o increased fatigue has not had any rx for months Iron Installer Required: No Allergies No Known Allergies [No Known Allergies*] Allergy (Verified 10/10/23 12:21) Medication List - Last Reconciled 05/06/24 by Abe Sagastume MD cholecalciferol (vitamin D3) 25 mcg PO DAILY multivitamin (Daily Multi-Vitamin tablet) 1 tab PO DAILY HPI Comments Details: Emilia comes for follow-up. She has no new cardiac symptoms. Denies any symptoms of worsening shortness of breath, orthopnea, PND, leg edema. She ran out of metoprolol and she has not seen a primary care physician who would not refill her prescriptions. She also did not call or office. She denies any exertional chest pain. Denies any prolonged palpitation irregular heartbeat. Her remote monitoring has been within normal limits. [facility] Medical History Abnormal x-ray Left shoulder pain Annual physical exam Abnormal SPEP Abnormal echocardiogram Complete heart block Cardiac pacemaker in situ Vitamin D deficiency Hypercalcemia Multinodular thyroid Surgical History Hx of cardiac pacemaker Hx of cholecystectomy Hx of tubal ligation Family History Mother Diabetes CVD (cardiovascular disease) Stroke Myocardial infarction Maternal Grandmother Diabetes Father Unknown family medical history Social History Housing: Apartment Are you a primary animal care technician to a significant other at home: No Alcohol intake: current Alcohol intake frequency: holidays/special occasions only Patient Tobacco Use Status: Never used Tobacco e-Cigarette/Vaping Use: Never Used Current occupational status: unemployed Review of Systems Const Denies chills, Denies fatigue, Denies fever(s), Denies frequent falls, Denies weakness, Denies weight gain and Denies weight loss ENT Denies dizziness Card Denies chest pain, Denies leg edema, Denies lightheadedness, Denies palpitations, Denies dyspnea, Denies dyspnea on exertion, Denies orthopnea and Denies other (loss of consciousness) Resp Denies cough, Denies dyspnea and Denies dyspnea on exertion GI Denies hematochezia and Denies change in stool character Musc Denies abnormal gait, Denies muscle weakness, Denies numbness, Denies radiating pain into limb and Denies tingling Neuro Denies abnormal gait, Denies dizziness, Denies frequent falls, Denies numbness, Denies tingling and Denies weakness Endo Denies fatigue and Denies palpitations Physical Exam Vital Signs: Last Vital Signs Pulse 60 05/06/24 08:44 BP 120/80 05/06/24 08:44 BMI result Body Mass Index 33.1 Const General: cooperative, comfortable, no acute distress, alert and awake Nutritional Appearance: obese Orientation/consciousness: patient oriented x3 Limitations: no limitations Neck Neck: Yes trachea midline, Yes supple and Yes no JVD Resp Effort & Inspection: normal respiratory effort Auscultation: clear to auscultation bilaterally Cardio Jugular venous distension: no JVD Palpation: normal PMI Rate: regular rate Rhythm: regular rhythm Heart sounds: S1 normal heart sound present and S2 normal heart sound present GI Auscultation: normal bowel sounds Skin General skin exam: no rashes or lesions noted Neuro General: patient oriented x3 and no focal motor deficits Extrem General: Yes no clubbing, cyanosis or edema Psych Appearance: grossly normal Office Procedures Cardiac Device Check Cardiac Device Check Details: [facility] pacemaker in place. Programmed in DDDR at 60 beats per minute. Ventricularly pacer dependent. Atrial pacing about 19 % of time. No arrhythmias detected. Atrial ventricular pacing thresholds adequate and in auto capture mode. Atrial sensing is excellent. Pacing lead impedance is stable. Battery life is 4.3 years [id number] Cardiac Device Check, pacemaker dual lead Procedure code (CPT) selection complete EKG Details: EKG shows AV dual paced rhythm [id number], Complete Assessment & Plan Assessment & Plan (1) Cardiac pacemaker in situ: Comment: Dual-chamber [facility] pacemaker for complete heart block Code(s): Z95.0 - Presence of cardiac pacemaker Category: Medical Plan: Cardiac pacemaker in-situ for complete heart block. Patient is pacer dependent in the ventricle. Pacemaker is working well. Reprogrammed for adequate functioning. Follow-up remotely every 3 months and follow up in the clinic in 1 year's time. Advised to call me with any new symptoms. (2) Cardiomyopathy: Code(s): I42.9 - Cardiomyopathy, unspecified Category: Medical Plan: Cardiomyopathy which had developed after the pacemaker placement most likely due to asynchronous LV contraction related to RV pacing. This was corrected with metoprolol therapy and last echocardiogram showed normalized LV EF. Importance of metoprolol therapy was discussed. Will resume the same. Follow-up echocardiogram near future. Avoidance of cardiotoxic agent was discussed. Signs and symptoms of heart failure were discussed. Will follow up in the clinic in 1 year's time, sooner p.r.n.. Thank you for allowing me to partake in her care Orders: Orders CA echo transthoracic complete Today I42.9 - Cardiomyopathy, unspecified Medications: New metoprolol succinate ER (Toprol XL) 25 mg PO DAILY 30 tabs 5RF metoprolol succinate ER (Toprol XL) 25 mg PO DAILY 90 tabs 3RF I42.9 - Cardiomyopathy, unspecified Coding Level of Care Code Est Pt Level 4 (72041) Diagnoses Cardiac pacemaker in situ Z95.0 Cardiomyopathy I42.9 CPT Codes Cardiac Device Check - Cardiac Device 2: [id number] Cardiac Device Check, pacemaker dual lead ([id number]) EKG - CPT: 87134-Ihabzkrrikcrzsmvc, Complete ([id number])
[2024-05-06 08:44] VITALS: BP 120/80; PULSE 60; BMI 33.1
== END 2024-05-06 09:08 | disposition home or self-care (01) ==
PROVIDERS: PCP Internal Medicine; Visit Provider Internal Medicine Cardiovascular Disease
DX: I42.9 Cardiomyopathy, unspecified (principal); Z95.0 Presence of cardiac pacemaker; Z91.148 Patient's other noncompliance with medication regimen for other reason
CPT/HCPCS: 93010; 93280; 99214

== ENCOUNTER → 2024-05-06 08:30 | Outpatient (BNVA) | payer OTHER, SELFPAY | PROVIDERS: PCP Internal Medicine; Visit Provider Internal Medicine Cardiovascular Disease | DX: I42.9 Cardiomyopathy, unspecified (principal); Z45.018 Encounter for adjustment and management of other part of cardiac pacemaker | CPT/HCPCS: 93005; 93280 ==

== ENCOUNTER → 2024-07-22 15:01 | Outpatient (RCR) | payer OTHER, SELFPAY ==
[2020-11-27 10:59] VITALS: BP 139/92; PULSE 86; RESP 12; TEMP 36.5; O2SAT 97; BMI 34.0
[2020-11-27 12:16] LABS: MANUAL DIFF FLAG NO
[2020-11-27 12:30] LABS: Basophils Percent Auto 0.7 % (0-2); Eosinophils Absolute Auto 0.4 X10*3/uL (0.0-0.4); Eosinophils Percent Auto 6.1 % (0-4); Hematocrit 37.4 % (37-47); Hemoglobin 11.8 g/dl (12.0-16.0); Imm Gran Abs Auto 0.02 X10*3/uL (0.00-0.03); Imm Gran Pct Auto 0.3 % (0.0-0.4); Lymphocytes Percent Auto 18.1 % (20-40); Mean Corpuscular HGB Conc 31.6 g/dl (31.0-35.0); Mean Corpuscular Hemoglobin 27.1 pg (27.0-33.0); Mean Corpuscular Volume 85.8 fL (80-98); Monocytes Absolute Auto 0.7 X10*3/uL (0.1-1.2); Neutrophils Absolute Auto 3.6 X10*3/uL (2.0-8.3); Neutrophils Percent Auto 62.8 % (45-73); Platelet Count 354 X10*3/uL (160-400); Red Blood Count 4.36 X10*6/uL (4.20-5.50); Red Cell Distribution Width 13.8 % (11.0-16.0); White Blood Count 5.8 X10*3/uL (4.8-10.8)
[2020-11-27 12:51] LABS: Alanine Aminotransferase 26 U/L (0-31); Albumin Level 3.8 g/dL (3.5-5.0); Alkaline Phosphatase 268 U/L (39-117); Anion Gap 13 (12-20); Aspartate Amino Transferase 27 U/L (5-31); Bilirubin Total 0.4 mg/dL (0.0-1.0); Blood Urea Nitrogen 18 mg/dL (9-16); Calcium 10.1 mg/dL (8.4-10.2); Carbon Dioxide 28 mmol/L (22-29); Chloride 101 mmol/L (96-108); Creatinine Clr Calc Pharmacy 70.9; Estimated Glomerular Filt Rate > 60; Glucose Random 83 mg/dL (60-115); Sodium 137 mmol/L (135-145)
--- NOTE | 2020-11-27 15:33 | P.CNHO_ITS ---
Subjective - Subjective Chief complaint: Abnormal blood test Patient: new to practice Consult date: 11/27/20 Primary Care Provider: Deanna Lee MD HPI - Consult Narrative Reason for consult: Abnormal serum electrophoresis Narrative: Emilia Levy is a 60 year old female who is referred for evaluation of abnormal blood work. She was being worked up for mild hypercalcemia, a serum electrophoresis revealed elevation of beta 2 globulins. Patient denies any symptoms such as excess fatigue, bone pain, exertional chest pain or shortness of breath. She is in her usual state of health. She is not on any new medications. Review of Systems - Constitutional Reports as per HPI, Reports no additional constitutional complaints - Eyes Denies change in vision - ENT Denies dysphagia, Denies vertigo, Denies dizziness - Cardiovascular Denies chest pain with activity, Denies irregular heart rhythm, Denies lightheadedness - Respiratory Denies cough, Denies dyspnea - Gastrointestinal Denies bright, red blood in stools, Denies change in bowel habits [facility] Medical History: Medical History (Last Updated 11/28/20 @ 09:05 by Tamia Morel MD) Abnormal echocardiogram Abnormal SPEP Cardiac pacemaker in situ Complete heart block Hypercalcemia Multinodular thyroid Sarcoidosis Vitamin D deficiency Family History: Family History (Last Updated 11/27/20 @ 11:03 by Theresa Landers) Mother Diabetes CVD (cardiovascular disease) Maternal Grandmother Diabetes Surgical History: Surgical History (Last Reviewed 10/18/20 @ 14:17 by Hailee Anne DO) Hx of cardiac pacemaker Hx of cholecystectomy Hx of tubal ligation Smoking status: Never smoker Home Medications and Allergies Home Medications Medication Instructions Recorded Confirmed Type pravastatin 40 mg tablet 40 mg PO DAILY 10/18/20 11/27/20 History Allergies Allergy/AdvReac Type Severity Reaction Status Date / Time No Known Allergies Allergy Verified 10/18/20 14:09 [No Known Allergies*] pravastatin AdvReac Unknown swelling Verified 10/18/20 14:09 of lower ext Physical Exam Vital signs: Vital Signs Temp 97.7 F 11/27/20 10:59 Pulse 86 11/27/20 10:59 Resp 12 11/27/20 10:59 BP 139/92 H 11/27/20 10:59 Pulse Ox 97 11/27/20 10:59 Intake & Output 11/26/20 11/27/2021 18:59 06:59 18:59 Other: Weight 84.3 kg Weight 84.3 kg Hem/Onc Consult Result - Labs CBC & Chem 7: 11/27/20 11:56 11/27/20 11:56 Labs: Short CBC 11/27/20 Range/Units 11:56 WBC 5.8 (4.8-10.8) X10*3/uL Hgb 11.8 L (12.0-16.0) g/dl Hct 37.4 (37-47) % Plt Count 354 (160-400) X10*3/uL BMP 11/27/20 11:56 Sodium 137 Potassium 5.0 Chloride 101 Carbon Dioxide 28 BUN 18 H Creatinine 0.86 Calcium 10.1 Liver Function 11/27/20 Range/Units 11:56 Total Bilirubin 0.4 (0.0-1.0) mg/dL AST 27 (5-31) U/L ALT 26 (0-31) U/L Alkaline Phosphatase 268 H (39-117) U/L Albumin 3.8 (3.5-5.0) g/dL Assessment and Plan (1) Abnormal SPEP Status: Acute 1. This is a 60-year-old woman found to have mild increase in gamma globulins on serum protein electrophoresis. This was performed as part of workup for calcium levels in the upper range of normal. She is asymptomatic and does not have anemia or renal dysfunction. I have submitted serum immunofixation, kappa lambda light chain ratio. She has persistent elevation of alkaline phosphatase level with normal liver functions. Isoenzyme level to be added. Imaging study with liver ultrasound and bone scan/bone density depending on above testing. She denies personal history of sarcoidosis, she states her mother has it. I thank you for this referral.
--- NOTE | 2021-06-01 15:50 | P.PNHO_ITS ---
Medical Summary - Medical Summary Date of Service: 06/01/21 Chief complaint: Follow-up Medical Summary: Diagnosis: Abnormal serum electrophoresis Interval History Interval history: Patient is here in follow-up. She is doing well and has no complaints today. Review of Systems - Constitutional Reports as per HPI, Reports no additional constitutional complaints - Cardiovascular Reports no additional cardiovascular complaints - Respiratory Reports no additional respiratory complaints - Gastrointestinal Reports no additional gastrointestinal complaints - Neurologic Denies vertigo, Denies dizziness [facility] Medical History: Medical History (Last Reviewed 05/08/21 @ 15:26 by Abe Sagastume MD) Abnormal echocardiogram Abnormal SPEP Cardiac pacemaker in situ Complete heart block Hypercalcemia Multinodular thyroid Sarcoidosis Vitamin D deficiency Family History: Family History (Last Reviewed 05/08/21 @ 15:26 by Abe Sagastume MD) Mother Diabetes CVD (cardiovascular disease) Stroke Myocardial infarction Maternal Grandmother Diabetes Father Unknown family medical history Surgical History: Surgical History (Last Reviewed 05/08/21 @ 15:26 by Abe Sagastume MD) Hx of cardiac pacemaker Hx of cholecystectomy Hx of tubal ligation Social History: Social History (Last Reviewed 05/08/21 @ 15:26 by Abe Sagastume MD) Living Situation History: Are you a primary animal care taker to a significant other at home: No Alcohol History: Alcohol intake: current Alcohol History Details: Alcohol intake frequency: holiday/special occasion Tobacco History: Patient Tobacco Use Status: Never used Tobacco Substance Use History: Use of substances other than those prescribed or required for medical reasons : No Domestic Abuse History: Have you been hit, kicked, punched, or otherwise hurt by someone within the past year? If so, by whom?: No Do you feel safe in your current relationship?: Yes Nutrition Assessment: Recently lost weight without trying: No Nutrition Risks: No Nutritional Risk Patient : No : No Poor oral hygiene: No Oncology Screenings - ECOG Performance Status ECOG Performance Status: 0 Home Medications and Allergies Home Medications Medication Instructions Recorded Confirmed Type multivitamin 1 tab PO DAILY 01/25/21 06/01/21 History omega-3 fatty acids 1,000 mg 1,000 mg PO DAILY 01/25/21 06/01/21 History capsule cholecalciferol (vitamin D3) 25 25 mcg PO DAILY 04/12/21 06/01/21 History mcg (1,000 unit) capsule Allergies Allergy/AdvReac Type Severity Reaction Status Date / Time No Known Allergies Allergy Verified 04/12/21 14:05 [No Known Allergies*] Exam Vital signs: Vital Signs Temp 97.7 F 11/27/20 10:59 Pulse 86 11/27/20 10:59 Resp 12 11/27/20 10:59 BP 139/92 H 11/27/20 10:59 Pulse Ox 97 11/27/20 10:59 Weight 84.3 kg Body Mass Index 34.0 Data - Labs CBC & Chem 7: 11/27/20 11:56 11/27/20 11:56 Labs: 11/27/20 11:56 Complete Blood Count Auto Diff Routine Comprehensive Met. Panel Routine Laboratory Last Values WBC 5.8 X10*3/uL (4.8-10.8) 11/27/20 11:56 RBC 4.36 X10*6/uL (4.20-5.50) 11/27/20 11:56 Hgb 11.8 g/dl (12.0-16.0) L 11/27/20 11:56 Hct 37.4 % (37-47) 11/27/20 11:56 MCV 85.8 fL (80-98) 11/27/20 11:56 MCH 27.1 pg (27.0-33.0) 11/27/20 11:56 MCHC 31.6 g/dl (31.0-35.0) 11/27/20 11:56 RDW 13.8 % (11.0-16.0) 11/27/20 11:56 Plt Count 354 X10*3/uL (160-400) 11/27/20 11:56 MPV 10.0 fL (9.4-12.3) 11/27/20 11:56 Immature Gran % (Auto) 0.3 % (0.0-0.4) 11/27/20 11:56 Neut % (Auto) 62.8 % (45-73) 11/27/20 11:56 Lymph % (Auto) 18.1 % (20-40) L 11/27/20 11:56 [place] % (Auto) 12.0 % (2-11) H 11/27/20 11:56 Eos % (Auto) 6.1 % (0-4) H 11/27/20 11:56 Baso % (Auto) 0.7 % (0-2) 11/27/20 11:56 Lymph # (Auto) 1.0 X10*3/uL (1.2-4.9) L 11/27/20 11:56 [place] # (Auto) 0.7 X10*3/uL (0.1-1.2) 11/27/20 11:56 Eos # (Auto) 0.4 X10*3/uL (0.0-0.4) 11/27/20 11:56 Baso # (Auto) 0.0 X10*3/uL (0.0-0.2) 11/27/20 11:56 Abs Immat Gran (auto) 0.02 X10*3/uL (0.00-0.03) 11/27/20 11:56 Absolute Neuts (auto) 3.6 X10*3/uL (2.0-8.3) 11/27/20 11:56 Absolute Nucleated RBC 0.000 X10*3/uL (0.0-0.012) 11/27/20 11:56 Nucleated RBC % (auto) 0.0 /100WBC (0.0-0.2) 11/27/20 11:56 Sodium 137 mmol/L (135-145) 11/27/20 11:56 Potassium 5.0 mmol/l (3.3-5.1) 11/27/20 11:56 Chloride 101 mmol/L (96-108) 11/27/20 11:56 Carbon Dioxide 28 mmol/L (22-29) 11/27/20 11:56 Anion Gap 13 (12-20) 11/27/20 11:56 BUN 18 mg/dL (9-16) H 11/27/20 11:56 Creatinine 0.86 mg/dL (0.5-1.4) 11/27/20 11:56 Estim Creat Clear Calc 70.9 11/27/20 11:56 Estimated GFR > 60 11/27/20 11:56 Random Glucose 83 mg/dL (60-115) 11/27/20 11:56 Calcium 10.1 mg/dL (8.4-10.2) 11/27/20 11:56 Total Bilirubin 0.4 mg/dL (0.0-1.0) 11/27/20 11:56 AST 27 U/L (5-31) 11/27/20 11:56 ALT 26 U/L (0-31) 11/27/20 11:56 Alkaline Phosphatase 268 U/L (39-117) H 11/27/20 11:56 Total Protein 9.0 g/dL (6.5-8.0) H 11/27/20 11:56 Albumin 3.8 g/dL (3.5-5.0) 11/27/20 11:56 Progress Note: A/P (1) Abnormal SPEP Status: Acute Assessment and plan: 1. This is a 61-year-old woman found to have mild increase in gamma globulins on serum protein electrophoresis. This was performed as part of workup for calcium levels in the upper range of normal. She is asymptomatic and does not have anemia or renal dysfunction. I have submitted serum immunofixation, kappa lambda light chain ratio. Results will be discussed with the patient. - Time Spent With Patient Time Spent with Patient (in minutes): 15
[2021-06-01 15:56] VITALS: BMI 36.8
[2021-06-01 15:57] VITALS: BP 142/81; PULSE 84; RESP 18; TEMP 36.3; O2SAT 97
--- NOTE | 2021-06-01 16:32 | MHC.HEMONC ---
pt seen by Dr Morel. Labs drawn but results pending. No newc/o or midications for this pt. F/U in November.
[2021-06-01 16:40] LABS: Alanine Aminotransferase 36 U/L (0-31); Alkaline Phosphatase 223 U/L (39-117); Anion Gap 11 (12-20); Aspartate Amino Transferase 34 U/L (5-31); Bilirubin Total 0.4 mg/dL (0.0-1.0); Blood Urea Nitrogen 20 mg/dL (9-16); Calcium 9.6 mg/dL (8.4-10.2); Carbon Dioxide 30 mmol/L (22-29); Chloride 103 mmol/L (96-108); Creatinine Clr Calc Pharmacy 57.6; Estimated Glomerular Filt Rate 51; Glucose Random 159 mg/dL (60-115); Potassium 4.2 mmol/L (3.3-5.1); Sodium 140 mmol/L (135-145); Total Protein 8.8 g/dL (6.5-8.0)
[2021-06-05 15:30] LABS: Kappa Light Chain, Free Serum 41.6 mg/L (3.3-19.4); Kappa/Lambda Lt Ch Free Ratio 1.14 (0.26-1.65); Lambda Light Chain, Free Serum 36.4 mg/L (5.7-26.3)
[2021-06-06 19:42] LABS: IgA 851 mg/dL (47-310); IgG 2665 mg/dL (600-1640); IgM 80 mg/dL (50-300)
[2021-06-06 22:27] LABS: Beta-2 Microglobulin, Serum 3.54 mg/L (< OR = 2.51)
--- NOTE | 2021-12-03 16:44 | MHC.HEMONC ---
Nurse called pt at home after she did not arrive for scheduled Hem f/u appt, pt said she was unaware of appt, requested to book an appt on an upcoming , but nurse replied that Dr. Morel does not work on . Pt said she would need to call back to schedule after reviewing her schedule. Nurse gave her CB #.
== END | disposition home or self-care (01) ==
LOC: HO.ONC 11-27 10:34
PROVIDERS: PCP Internal Medicine; Referring Provider Internal Medicine; Visit Provider Internal Medicine
DX: R77.8 Other specified abnormalities of plasma proteins (principal); E83.52 Hypercalcemia
CPT/HCPCS: 36415; 80053; 82232; 82784; 83520; 85025; 86334; 99204

== ENCOUNTER → 2024-07-29 23:59 | Outpatient (BNV) | payer OTHER, SELFPAY ==
--- NOTE | 2024-07-29 10:08 | MHC.OFFVIS ---
Intake Visit Reasons: Remote device check- [facility] Allergies No Known Allergies [No Known Allergies*] Allergy (Verified 10/10/23 12:21) PFSH Medical History Abnormal x-ray Left shoulder pain Annual physical exam Abnormal SPEP Abnormal echocardiogram Complete heart block Cardiac pacemaker in situ Vitamin D deficiency Hypercalcemia Multinodular thyroid Surgical History Hx of cardiac pacemaker Hx of cholecystectomy Hx of tubal ligation Family History Mother Diabetes CVD (cardiovascular disease) Stroke Myocardial infarction Maternal Grandmother Diabetes Father Unknown family medical history Social History Housing: Apartment Are you a primary healthcare financial analyst to a significant other at home: No Alcohol intake: current Alcohol intake frequency: holidays/special occasions only Patient Tobacco Use Status: Never used Tobacco e-Cigarette/Vaping Use: Never Used Current occupational status: unemployed Office Procedures Cardiac Device Check Cardiac Device Check Details: Remote pacemaker report generated 07/29/2024. Patient ventricularly pacer dependent. Pacemaker function is adequate [id number] Cardiac Device Interrogation, pacemaker Procedure code (CPT) selection complete Assessment & Plan Assessment & Plan (1) Cardiac pacemaker in situ: Comment: Dual-chamber [facility] pacemaker for complete heart block Code(s): Z95.0 - Presence of cardiac pacemaker Category: Medical Plan: See above Coding Level of Care Code Procedure Only Diagnoses Cardiac pacemaker in situ Z95.0 CPT Codes Cardiac Device Check - Cardiac Device 12: [id number] Cardiac Device Interrogation, pacemaker ([id number])
== END ==
PROVIDERS: PCP Internal Medicine; Visit Provider Internal Medicine Cardiovascular Disease
DX: Z45.018 Encounter for adjustment and management of other part of cardiac pacemaker (principal)
CPT/HCPCS: 93294

== ENCOUNTER → 2024-10-28 23:59 | Outpatient (BNV) | payer OTHER, SELFPAY ==
--- NOTE | 2024-11-11 16:05 | MHC.OFFVIS ---
Intake Visit Reasons: Remote device check- [facility] Allergies No Known Allergies [No Known Allergies*] Allergy (Verified 10/10/23 12:21) PFSH Medical History Abnormal x-ray Left shoulder pain Annual physical exam Abnormal SPEP Abnormal echocardiogram Complete heart block Cardiac pacemaker in situ Vitamin D deficiency Hypercalcemia Multinodular thyroid Surgical History Hx of cardiac pacemaker Hx of cholecystectomy Hx of tubal ligation Family History Mother Diabetes CVD (cardiovascular disease) Stroke Myocardial infarction Maternal Grandmother Diabetes Father Unknown family medical history Social History Housing: Apartment Are you a primary point of care technician to a significant other at home: No Alcohol intake: current Alcohol intake frequency: holidays/special occasions only Patient Tobacco Use Status: Never used Tobacco e-Cigarette/Vaping Use: Never Used Current occupational status: unemployed Office Procedures Cardiac Device Check Cardiac Device Check Details: Remote pacemaker report generated October 28/2024. Pacemaker function is adequate patient ventricularly pacer dependent [id number] Cardiac Device Interrogation, pacemaker Procedure code (CPT) selection complete Assessment & Plan Assessment & Plan (1) Cardiac pacemaker in situ: Comment: Dual-chamber [facility] pacemaker for complete heart block Code(s): Z95.0 - Presence of cardiac pacemaker Category: Medical Plan: See above Coding Level of Care Code Procedure Only Diagnoses Cardiac pacemaker in situ Z95.0 CPT Codes Cardiac Device Check - Cardiac Device 12: 00703-Ijudtx Cardiac Device Interrogation, pacemaker ([id number])
== END ==
PROVIDERS: PCP Internal Medicine; Visit Provider Internal Medicine Cardiovascular Disease
DX: I44.2 Atrioventricular block, complete (principal); Z95.0 Presence of cardiac pacemaker
CPT/HCPCS: 93294

== ENCOUNTER → 2025-01-27 23:59 | Outpatient (BNV) | payer OTHER, SELFPAY ==
--- NOTE | 2025-01-31 16:03 | A.OFFVIS_ITS ---
Intake Visit Reasons: Remote device check- [facility] Allergies No Known Allergies [No Known Allergies*] Allergy (Verified 10/10/23 12:21) PFSH Medical History Abnormal x-ray Left shoulder pain Annual physical exam Abnormal SPEP Abnormal echocardiogram Complete heart block Cardiac pacemaker in situ Vitamin D deficiency Hypercalcemia Multinodular thyroid Surgical History Hx of cardiac pacemaker Hx of cholecystectomy Hx of tubal ligation Family History Mother Diabetes CVD (cardiovascular disease) Stroke Myocardial infarction Maternal Grandmother Diabetes Father Unknown family medical history Social History Housing: Apartment Are you a primary patient care director to a significant other at home: No Alcohol intake: current Alcohol intake frequency: holidays/special occasions o nly Patient Tobacco Use Status: Never used Tobacco e-Cigarette/Vaping Use: Never Used Current occupational status: unemployed Office Procedures Cardiac Device Check Cardiac Device Check Details: Remote pacemaker report generated 01/27/2025. Patient ventricularly pacer dependent. Pacemaker function is adequate [id number] Cardiac Device Interrogation, pacemaker Procedure code (CPT) selection complete Assessment & Plan Assessment & Plan (1) Cardiac pacemaker in situ: Comment: Dual-chamber [employer] [facility] pacemaker for complete heart block Code(s): Z95.0 - Presence of cardiac pacemaker Category: Medical Plan: See above Coding Level of Care Code Procedure Only Diagnoses Cardiac pacemaker in situ Z95.0 CPT Codes Cardiac Device Check - Cardiac Device 12: [id number] Cardiac Device Interrogation, pacemaker ([id number])
== END ==
PROVIDERS: PCP Internal Medicine; Visit Provider Internal Medicine Cardiovascular Disease
DX: I44.2 Atrioventricular block, complete (principal); Z95.0 Presence of cardiac pacemaker
CPT/HCPCS: 93294

== ENCOUNTER 2025-04-25 13:32 | Outpatient (AMB) | payer OTHER, SELFPAY ==
--- NOTE | 2025-04-25 13:36 | A.OFFVIS_ITS ---
Vital Signs 04/25/25 13:37 Height 5 ft 2 in Weight 176 lb 5.917 oz BMI 32.3 BP 120/70 Blood Pressure Location Lt brachial Position Sitting Pulse 104 H Intake Visit Reasons: 1 yr follow up r/s 05/12 Intake Note: 1 year follow-up with ekg feeling good Testing Consultant Required: No Allergies No Known Allergies [No Known Allergies*] Allergy (Verified 10/10/23 12:21) Medication List - Last Reconciled 04/25/25 by Abe Sagastume MD cholecalciferol (vitamin D3) 25 mcg PO DAILY metoprolol succinate ER (Toprol XL) 25 mg PO DAILY multivitamin (Daily Multi-Vitamin tablet) 1 tab PO DAILY pravastatin 40 mg PO DAILY HPI Comments Details: Emilia comes for follow-up. She has not had any cardiac symptoms. Today noted her heart rate to be on the elevated side with sinus tachycardia. She says she has been suffering from cold. She denies any fever or chills. No cough productive of phlegm. Says has been hydrating well. Taking all her medication although she has ran out of pravastatin. Not sure if she has ran out of her metoprolol as well. No prolonged palpitation irregular heartbeat. No lightheadedness, syncope. No exertional chest pain or shortness of breath. No orthopnea, PND. [facility] Medical History Abnormal x-ray Left shoulder pain Annual physical exam Abnormal SPEP Abnormal echocardiogram Complete heart block Cardiac pacemaker in situ Vitamin D deficiency Hypercalcemia Multinodular thyroid Surgical History Hx of cardiac pacemaker Hx of cholecystectomy Hx of tubal ligation Family History Mother Diabetes CVD (cardiovascular disease) Stroke Myocardial infarction Maternal Grandmother Diabetes Father Unknown family medical history Social History Housing: Apartment Are you a primary care director to a significant other at home: No Alcohol intake: current Alcohol intake frequency: holidays/special occasions only Patient Tobacco Use Status: Never used Tobacco e-Cigarette/Vaping Use: Never Used Current occupational status: unemployed Review of Systems Const Denies chills, Denies fatigue, Denies fever(s), Denies frequent falls, Denies weakness, Denies weight gain and Denies weight loss ENT Denies dizziness Card Denies chest pain, Denies leg edema, Denies lightheadedness, Denies palpitations, Denies dyspnea, Denies dyspnea on exertion, Denies orthopnea and Denies other (loss of consciousness) Resp Denies cough, Denies dyspnea and Denies dyspnea on exertion GI Denies hematochezia and Denies change in stool character Musc Denies abnormal gait, Denies muscle weakness, Denies numbness, Denies radiating pain into limb and Denies tingling Neuro Denies abnormal gait, Denies dizziness, Denies frequent falls, Denies numbness, Denies tingling and Denies weakness Endo Denies fatigue and Denies palpitations Physical Exam Vital Signs: Last Vital Signs Pulse 104 H 04/25/25 13:37 BP 120/70 04/25/25 13:37 BMI result Body Mass Index 32.3 Const General: cooperative, comfortable, no acute distress, alert and awake Nutritional Appearance: obese Orientation/consciousness: patient oriented x3 Limitations: no limitations Neck Neck: Yes trachea midline, Yes supple and Yes no JVD Resp Effort & Inspection: normal respiratory effort Auscultation: clear to auscultation bilaterally Cardio Jugular venous distension: no JVD Palpation: normal PMI Rate: regular rate Rhythm: regular rhythm Heart sounds: S1 normal heart sound present and S2 normal heart sound present GI Auscultation: normal bowel sounds Skin General skin exam: no rashes or lesions noted Neuro General: patient oriented x3 and no focal motor deficits Extrem General: Yes no clubbing, cyanosis or edema Psych Appearance: grossly normal Office Procedures Cardiac Device Check Cardiac Device Check Details: Dual-chamber [facility] pacemaker in place. Programmed in DDDR at 60 beats per minute. Ventricular pacing 100% time. One episode of nonsustained ventricular tachycardia noted. Atrial ventricular pacing thresholds excellent and in auto capture mode. Atrial ventricular sensing is adequate. Pacing lead impedance is stable. Battery life is 3.3 years [id number] Cardiac Device Check, pacemaker dual lead Procedure code (CPT) selection complete EKG Details: EKG shows sinus tachycardia with ventricularly paced rhythm with RV pacing [id number], Complete Assessment & Plan Assessment & Plan (1) Cardiac pacemaker in situ: Comment: Dual-chamber [facility] pacemaker for complete heart block Code(s): Z95.0 - Presence of cardiac pacemaker Category: Medical Plan: Cardiac pacemaker in-situ, for complete heart block. Pacemaker is working well. Patient is pacer dependent. Had prior history of cardiomyopathy which has improved. Now noted nonsustained ventricular tachycardia. Will obtain echocardiogram to evaluate for systolic dysfunction and/or regional wall motion abnormality. (2) Nonsustained ventricular tachycardia: Code(s): I47.29 - Other ventricular tachycardia Category: Medical Plan: Noted nonsustained ventricular tachycardia. Question cardiomyopathy process. Question infiltrative process given that she has history of complete heart block. There has been no clear other systemic evidence of sarcoidosis. Will follow-up echocardiogram near future. Can consider cardiac MRI. Will maximize metoprolol to 50 mg daily as tolerated. Advised to avoid stimulants. Advised to maintain adequate hydration. Follow up in the clinic otherwise in 1 year's time, sooner p.r.n.. Thank you for allowing me to partake in her care Orders: Orders CA echo transthoracic complete Today I47.29 - Other ventricular tachycardia Medications: New pravastatin 40 mg PO DAILY 90 tabs 3RF metoprolol succinate ER (Toprol XL) 50 mg PO DAILY 90 tabs 3RF Coding Level of Care Code Est Pt Level 4 (81123) Complex EM visit Add On G2211 Diagnoses Cardiac pacemaker in situ Z95.0 Nonsustained ventricular tachycardia I47.29 CPT Codes Cardiac Device Check - Cardiac Device 2: [id number] Cardiac Device Check, pacemaker dual lead ([id number]) EKG - CPT: 80492-[id number], Complete ([id number])
[2025-04-25 13:37] VITALS: BP 120/70; PULSE 104; BMI 32.3
== END 2025-04-25 13:59 | disposition home or self-care (01) ==
LOC: HO.HCS 13:32
PROVIDERS: PCP Internal Medicine; Visit Provider Internal Medicine Cardiovascular Disease
DX: I47.29 Other ventricular tachycardia (principal); Z95.0 Presence of cardiac pacemaker
CPT/HCPCS: 93010; 93280; 99214

== ENCOUNTER → 2025-04-25 13:32 | Outpatient (BNVA) | payer OTHER, SELFPAY | PROVIDERS: PCP Internal Medicine; Visit Provider Internal Medicine Cardiovascular Disease | DX: I47.29 Other ventricular tachycardia (principal); Z45.010 Encounter for checking and testing of cardiac pacemaker pulse generator [battery] | CPT/HCPCS: 93005; 93280 ==

== ENCOUNTER 2025-04-28 13:58 | Emergency (ER) | payer OTHER, SELFPAY ==
--- NOTE | ~2025-04-28 | XR_ITS ---
EXAMINATION: XR WRIST, RIGHT CLINICAL INFORMATION: trauma COMPARISON: None available. TECHNIQUE: PA, lateral, spot scaphoid, oblique views of the right wrist. FINDINGS: There is sclerosis, marginal osteophytes, and narrowing of the first carpal metacarpal and first metacarpal phalangeal joints. There is also of chronic fragmentation of the radial margin of the trapezium. No fracture line is identified. On the oblique view, there is calcific density projecting into the soft tissues adjacent to the radial styloid. XR/XR wrist RT min 3V IMPRESSION: Calcification adjacent to the base of the radial styloid on the oblique view is probably chronic in nature. Correlate for focal tenderness. First CMC and MCP joint osteoarthritis. Electronically signed by: Sam Khan MD 04/28/2025 02:21 PM EDT
--- NOTE | ~2025-04-28 | XR_ITS ---
EXAMINATION: XR HAND, RIGHT CLINICAL INFORMATION: trauma COMPARISON: None available. TECHNIQUE: PA, lateral, and oblique views of the right hand. FINDINGS: PIP joints demonstrate moderate to severe narrowing and marginal osteophyte formation most pronounced in the second digit. PIP joints are relatively preserved MCP joints are unremarkable. There is mild narrowing and marginal osteophyte formation involving the first metacarpophalangeal joint. There is also faint linear calcific density paralleling the first metacarpal head likely representing chondrocalcinosis. First carpal metacarpal joint demonstrates narrowing, sclerosis, and osteophytes. There is also adjacent soft tissue corticated fragment. XR/XR hand RT min 3V IMPRESSION: Osteoarthritis involving the DIP joints and first carpometacarpal and MCP joint. Chondrocalcinosis is visible involving the first metacarpal head. Electronically signed by: Sam Khan MD 04/28/2025 02:25 PM EDT
[2025-04-28 13:59] VITALS: BP 143/73; PULSE 82; RESP 16; TEMP 37.1; O2SAT 97; BMI 29.1
--- NOTE | 2025-04-28 14:01 | ED.GENADULT ---
HPI - General Adult General Chief complaint: Extremity Injury, Upper Stated complaint: fall r hand inj Time Seen by Provider: 04/28/25 14:24 Source: patient, RN notes reviewed and old records reviewed Mode of arrival: ambulatory Limitations: no limitations History of Present Illness ED Provider: Haleigh HPI narrative: 65-year-old female presents for evaluation of right hand and wrist pain. Patient reports that she tripped this morning and fell onto her outstretched right hand. She has pain to both the wrist and hand pain Denies head strike, loss of consciousness pain She is not anticoagulated. Her pain is 06/26 Related Data Home Medications ?Medication ?Instructions ?Recorded ?Confirmed multivitamin (Daily Multi-Vitamin 1 tab PO DAILY 01/25/21 04/25/25 tablet) cholecalciferol (vitamin D3) 25 25 mcg PO DAILY 04/12/21 04/25/25 mcg (1,000 unit) capsule Previous Rx's ?Medication ?Instructions ?Recorded metoprolol succinate 50 mg 50 mg PO DAILY #90 tabs 04/25/25 tablet,extended release 24 hr (Toprol XL) pravastatin 40 mg tablet 40 mg PO DAILY #90 tabs 04/25/25 tramadol 50 mg tablet 50 mg PO Q6H PRN pain #8 tabs 04/28/25 Allergies Allergy/AdvReac Type Severity Reaction Status Date / Time No Known Allergies Allergy Verified 04/28/25 14:04 [No Known Allergies*] Review of Systems Constitutional: Constitutional: Denies body ache(s), Denies chills and Denies headache(s) ENT: Denies headache(s) Musculoskeletal: Musculoskeletal: Reports arthralgias, Reports joint swelling and Reports limited range of motion Neurologic: Denies headache(s) [facility] Past Medical History Medical History Abnormal x-ray Left shoulder pain Annual physical exam Abnormal SPEP Abnormal echocardiogram Complete heart block Cardiac pacemaker in situ Vitamin D deficiency Hypercalcemia Multinodular thyroid Surgical History Hx of cardiac pacemaker Hx of cholecystectomy Hx of tubal ligation Family History Family History Mother Diabetes CVD (cardiovascular disease) Stroke Myocardial infarction Maternal Grandmother Diabetes Father Unknown family medical history Social History Social History Housing: Apartment Are you a primary animal care service worker to a significant other at home: No Alcohol intake: current Alcohol intake frequency: holidays/special occasions only Patient Tobacco Use Status: Never used Tobacco e-Cigarette/Vaping Use: Never Used Advance Directives: No Advance Directives Information Provided: Yes Current occupational status: unemployed Physical Exam ED Vital Signs: Vital Signs - 24 hr 04/28/25 13:59 04/28/25 15:22 Temperature 98.7 F 98.7 F Pulse Rate 82 82 Respiratory Rate 16 16 Blood Pressure 143/73 H 143/73 H Pulse Oximetry 97 97 Oxygen Delivery Method Room Air Room Air BMI result Body Mass Index 29.1 Const General: healthy appearing, comfortable, no acute distress, alert and awake Nutritional Appearance: well nourished Orientation/consciousness: patient oriented x3 HENMT Head: Yes normocephalic and Yes atraumatic Eyes Eyelids: Yes eyelids normal Conjunctivae: conjunctivae normal Sclerae: sclerae normal Corneas: corneas normal Pupils: Equal, round and reactive pupils present EOM: EOMs intact bilaterally Neck Neck: Yes full ROM Resp Effort & Inspection: normal respiratory effort, able to speak in complete sentences and not labored Cardio Rate: regular rate Rhythm: regular rhythm Skin General skin exam: no rashes or lesions noted and elasticity normal Neuro General: patient oriented x3 Cranial nerves: Yes Equal, round and reactive pupils present and Yes Bilaterally intact EOM present Cognition (Neuro): normal cognition Extrem Other: There was no obvious deformity to the right wrist. There is some edema to the right distal radius and ulna. The patient is tender over the distal radius on the right. There is some mild scaphoid tenderness as well. Course Course Course Narrative: RME, this is a rapid medical exam performed by Xavier Ricardo please refer to primary provider for complete H&P- 65 year old female presents for evaluation of right hand and wrist pain after a fall today. This was a nonsyncopal fall. Plan for x-rays Medical Decision Making Medical Decision Making MDM Narrative: 65-year-old female presents for evaluation of a fall on an outstretched right hand. There was no head strike or evidence of head trauma, she is neurologically intact. X-rays of the right hand and wrist were ordered, Radiology read does not show any acute fractures. I have some concern of a distal radius oblique fracture on my review of the images. Clinically the patient is tender in this area and there is some edema. We also possible the patient has a nondisplaced scaphoid fracture. She was placed in a sugar-tong splint and will follow up with Orthopedics Differential Diagnosis Differential Diagnoses: The differential diagnosis associated with the presentation includes Scaphoid fracture Distal radius fracture Wrist sprain Contusion Independent Interpretation I performed an independent interpretation of an: Plain X-Ray Interpretation: Possible distal radius fracture Radiology Impression Discussion of test interpretation with radiology: I have reviewed the radiologist's reading. Radiologist Impression: FINDINGS: PIP joints demonstrate moderate to severe narrowing and marginal osteophyte formation most pronounced in the second digit. PIP joints are relatively preserved MCP joints are unremarkable. There is mild narrowing and marginal osteophyte formation involving the first metacarpophalangeal joint. There is also faint linear calcific density paralleling the first metacarpal head likely representing chondrocalcinosis. First carpal metacarpal joint demonstrates narrowing, sclerosis, and osteophytes. There is also adjacent soft tissue corticated fragment. XR/XR hand RT min 3V IMPRESSION: Osteoarthritis involving the DIP joints and first carpometacarpal and MCP joint. Chondrocalcinosis is visible involving the first metacarpal head. Electronically signed by: Sam Khan MD 04/28/2025 02:25 PM EDT RP FINDINGS: There is sclerosis, marginal osteophytes, and narrowing of the first carpal metacarpal and first metacarpal phalangeal joints. There is also of chronic fragmentation of the radial margin of the trapezium. No fracture line is identified. On the oblique view, there is calcific density projecting into the soft tissues adjacent to the radial styloid. XR/XR wrist RT min 3V IMPRESSION: Calcification adjacent to the base of the radial styloid on the oblique view is probably chronic in nature. Correlate for focal tenderness. First CMC and MCP joint osteoarthritis. Electronically signed by: Sam Khan MD 04/28/2025 02:21 PM EDT RP Discharge Plan Discharge Clinical Impression: Right wrist injury Patient Disposition: Home, Self-Care Instructions: Wrist Fracture in Adults (ED) Additional Instructions: The radiologist read your x-ray that there are no fractures It is possible that there is a nondisplaced fracture of the distal radius, wrist Leave the splint in place and follow up with Orthopedics at the number provided You may use ibuprofen and Tylenol for pain. You may use tramadol for more severe, breakthrough pain This may make you drowsy, do not drink alcohol or drive after taking Prescriptions: New tramadol 50 mg tablet 50 mg PO Q6H PRN (Reason: pain) Qty: 8 0RF No Action multivitamin [Daily Multi-Vitamin] Tablet 1 tab PO DAILY cholecalciferol (vitamin D3) 25 mcg (1,000 unit) capsule 25 mcg PO DAILY metoprolol succinate [Toprol XL] 50 mg tablet extended release 24 hr 50 mg PO DAILY Qty: 90 3RF pravastatin 40 mg tablet 40 mg PO DAILY Qty: 90 3RF Referrals: [facility] [place] [facility] Surgeons [Provider Group] (? right distal radius nondisplaced fracture) Interventions: ED Discharge Assessment Last Done: 04/28/25 15:22 Discharge Date/Time: 04/28/25 15:23 Print Language: [place]
[2025-04-28 15:22] VITALS: BP 143/73; PULSE 82; RESP 16; TEMP 37.1; O2SAT 97
== END 2025-04-28 15:23 | disposition home or self-care (01) ==
PROVIDERS: Emergency Provider Emergency Medicine; PCP Internal Medicine
DX: S69.91XA Unspecified injury of right wrist, hand and finger(s), initial encounter (principal); M25.531 Pain in right wrist; X58.XXXA Exposure to other specified factors, initial encounter; Y93.9 Activity, unspecified; Y92.9 Unspecified place or not applicable; Y99.8 Other external cause status
CPT/HCPCS: 73110; 73130; 99282; 99283

== ENCOUNTER → 2025-04-28 14:01 | Outpatient (BNV) | payer OTHER, SELFPAY | PROVIDERS: PCP Internal Medicine; Visit Provider Radiology Diagnostic Radiology | DX: M18.11 Unilateral primary osteoarthritis of first carpometacarpal joint, right hand (principal); M71.431 Calcium deposit in bursa, right wrist | CPT/HCPCS: 73110; 73130 ==

== ENCOUNTER → 2025-04-28 23:59 | Outpatient (BNV) | payer OTHER, SELFPAY ==
--- NOTE | 2025-04-29 16:08 | MHC.OFFVIS ---
Intake Visit Reasons: Remote device check- [facility] Allergies No Known Allergies [No Known Allergies*] Allergy (Verified 04/28/25 14:04) PFSH Medical History Abnormal x-ray Left shoulder pain Annual physical exam Abnormal SPEP Abnormal echocardiogram Complete heart block Cardiac pacemaker in situ Vitamin D deficiency Hypercalcemia Multinodular thyroid Surgical History Hx of cardiac pacemaker Hx of cholecystectomy Hx of tubal ligation Family History Mother Diabetes CVD (cardiovascular disease) Stroke Myocardial infarction Maternal Grandmother Diabetes Father Unknown family medical history Social History Housing: Apartment Are you a primary associate director career services to a significant other at home: No Alcohol intake: current Alcohol intake frequency: holidays/special occasions only Patient Tobacco Use Status: Never used Tobacco e-Cigarette/Vaping Use: Never Used Advance Directives: No Advance Directives Information Provided: Yes Current occupational status: unemployed Office Procedures Cardiac Device Check Cardiac Device Check Details: Remote pacemaker report generated 04/28/2025. Pacemaker function is adequate. One episodes of high ventricular rate consistent with PMT [id number] Cardiac Device Interrogation, pacemaker Procedure code (CPT) selection complete Assessment & Plan Assessment & Plan (1) Cardiac pacemaker in situ: Comment: Dual-chamber [employer] [facility] pacemaker for complete heart block Code(s): Z95.0 - Presence of cardiac pacemaker Category: Medical Plan: See above Coding Level of Care Code Procedure Only Diagnoses Cardiac pacemaker in situ Z95.0 CPT Codes Cardiac Device Check - Cardiac Device 12: [id number] Cardiac Device Interrogation, pacemaker ([id number])
== END ==
PROVIDERS: PCP Internal Medicine; Visit Provider Internal Medicine Cardiovascular Disease
DX: R00.0 Tachycardia, unspecified (principal); Z95.0 Presence of cardiac pacemaker
CPT/HCPCS: 93294

== ENCOUNTER 2025-05-03 09:00 | Outpatient (REF) | payer OTHER, SELFPAY ==
--- NOTE | ~2025-05-03 | XR_ITS ---
EXAMINATION: XR WRIST, RIGHT CLINICAL INFORMATION: M25.531 - Pain in right wrist COMPARISON: None available. TECHNIQUE: PA, lateral, and oblique views of the right wrist. FINDINGS: No fracture, dislocation, or suspicious bone lesion. Normal bone mineralization. Normal alignment. Moderate osteoarthrosis in the first CMC joint. Mild changes in the STT joints. On the oblique view, there is redemonstration of a calcific density projecting into the soft tissues adjacent to the radial styloid, chronic appearance. Soft tissues appear normal. XR/XR wrist RT w scaphoid IMPRESSION: 1. No acute bony abnormalities of the right wrist. 2. Moderate osteoarthrosis first CMC joint. Electronically signed by: Alexandre Hendricks MD 05/03/2025 03:00 PM EDT
== END 2025-05-03 09:01 | disposition home or self-care (01) ==
LOC: HO.HOSX 09:00
PROVIDERS: Visit Provider Orthopaedic Surgery
DX: M25.531 Pain in right wrist (principal)
CPT/HCPCS: 73110

== ENCOUNTER 2025-05-03 14:41 | Outpatient (AMB) | payer OTHER, SELFPAY ==
[2025-05-03 14:50] VITALS: BMI 29.0
--- NOTE | 2025-05-03 14:50 | MHC.OFFVIS ---
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 Patient reports that on 04/27/25 she tripped and fell onto the right wrist, she was seen at [facility] [place] that day. She was placed in a splint. Currently states she has no pain just tenderness. Denies numbness, tingling or locking of any finger. 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 She says she is doing well overall and her symptoms feel like they are improving.. She has some bruising & pain about her wrist, and has some pain when moving her fingers. 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 She cares for her 3 year old granddaughter at home. She says she has been out of work since her DOI, and she is not taking care of her granddaughter for the rest of the week. [facility] Medical History Abnormal x-ray Left shoulder pain Annual physical exam Abnormal SPEP Abnormal echocardiogram Complete heart block Cardiac pacemaker in situ Vitamin D deficiency Hypercalcemia Multinodular thyroid Surgical History Hx of cardiac pacemaker Hx of cholecystectomy Hx of tubal ligation Family History Mother Diabetes CVD (cardiovascular disease) Stroke Myocardial infarction Maternal Grandmother Diabetes Father Unknown family medical history Social History (Updated 05/03/25 @ 15:27 by JIAN Price) Housing: Apartment Are you a primary rn primary care to a significant other at home: No Alcohol intake: current Alcohol intake frequency: holidays/special occasions only Patient Tobacco Use Status: Never used Tobacco e-Cigarette/Vaping Use: Never Used Current occupational status: employed Current occupation: rt hand / [employer] Review of Systems Const All systems reviewed & are unremarkable except as noted in HPI and below Physical Exam Vital Signs: BMI result Body Mass Index 29.0 Const General: cooperative, healthy appearing and no acute distress Orientation/consciousness: patient oriented x3 HEENT Head: Yes normocephalic and Yes atraumatic Eyes EOM: EOMs intact bilaterally Resp Effort & Inspection: normal respiratory effort and able to speak in complete sentences Cardio Jugular venous distension: no JVD Skin General skin exam: turgor normal Rashes: no rashes Neuro General: patient oriented x3 Extrem Other: Evaluation of Right Upper Extremity: The patient is alert, oriented, and in no acute distress Neuro: Median, Ulnar, Radial nerves motor and sensory intact and sensation is normal to the tips of all digits Vascular: Cap refill brisk ROM: She can make a fist and extend all her digits Skin: No lacerations or abrasions. General: Resolving Ecchymosis over dorsum of hand No Erythema or evidence of infection. Mild TTP over 3rd MCP joint Distal radius, DRUJ, and distal ulna all nontender Snuffbox NTTP Sacphoid tubercle NTTP CMC joints and metacarpals generally nontender Radiographs: 3 views of the right hand were taken and viewed by me today in clinic. They show some basal joint arthritis. There is a small fragment off the radial styloid which appears old, seen on the oblique view. No other evidence of fracture. Psych Appearance: grossly normal Affect: normal affect Attitude: cooperative Assessment & Plan Assessment & Plan (1) Contusion of right hand: Code(s): S60.221A - Contusion of right hand, initial encounter Category: Medical (2) Contusion of right wrist: Code(s): S60.211A - Contusion of right wrist, initial encounter Category: Medical Plan Assessment & Plan: 1. Right hand contusion S/P fall, DOI: 04/28/25 I educated her about this condition I discussed operative and non-operative treatment options No evidence of fracture seen on radiographs, and she has very mild tenderness We will manage this conservatively, no operative treatment indicated She was fitted for a velcro wrist splint to be worn when out of the house for the next 4 weeks. 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 She was given a note to return to work effective 05/04/25 She can follow up prn Scribed for Monika Orlando MD by Quincy Miller, medical records technician, on 05/03/25 at 3:30 PM, EST. Orders: Orders XR wrist RT w scaphoid Today M25.531 - Pain in right wrist Coding Level of Care Code Est Pt Level 3 (30244) Diagnoses Contusion of right hand S60.221A Contusion of right wrist S60.211A
== END 2025-05-03 15:58 | disposition home or self-care (01) ==
LOC: HO.HOS 14:41
PROVIDERS: PCP Internal Medicine; Visit Provider Orthopaedic Surgery
DX: S60.221A Contusion of right hand, initial encounter (principal); S60.211A Contusion of right wrist, initial encounter
CPT/HCPCS: 99213

== ENCOUNTER → 2025-05-03 14:43 | Outpatient (BNV) | payer OTHER, SELFPAY | PROVIDERS: Visit Provider Radiology Diagnostic Radiology | DX: M18.11 Unilateral primary osteoarthritis of first carpometacarpal joint, right hand (principal) | CPT/HCPCS: 73110 ==

== ENCOUNTER → 2025-06-20 11:03 | Outpatient (REF) | payer OTHER, SELFPAY ==
--- NOTE | 2025-06-20 11:06 | CA_ITS ---
Transthoracic Echocardiogram Patient (Last, First, Middle): Emilia Levy S Gender: Female Date of : 1960 Age: 65 Procedure Date: 06/20/2025 Procedure Type: Transthoracic Echocardiogram Location: OP Height: 167.64 cm Weight: 81.65 kg BSA: 1.91 m2 Heart Rate: bpm BP: 120 / 76 mmHg Container Finishing Inspector: ROBERT Referring MD: Abe Sagastume MD Symptoms: I47.29 - Other ventricular tachycardia Study Quality: Adequate with contrast Conclusions: - The left ventricular systolic function is mildly decreased. The visually estimated ejection fraction is between 45-50%. - No obvious valvular pathology seen on this study. Findings Procedure Information Contrast agent, definity, is being given per protocol without apparent complications. Left Ventricle Normal left ventricular cavity size. The left ventricular systolic function is mildly decreased. The visually estimated ejection fraction is between 45 50%. There is paradoxical septal motion consistent with a right ventricular pacemaker. Diastolic function is normal for age. There is moderate septal and moderate basal asymmetric hypertrophy. Right Ventricle Normal right ventricular cavity size and systolic function. Atria Both atria are normal in size. Aortic Valve There is a normal trileaflet aortic valve. There is no aortic valve stenosis. There is no aortic valve regurgitation. Mitral Valve The mitral valve appears normal. There is trace mitral valve regurgitation. There is no mitral valve stenosis. Pulmonic Valve The pulmonic valve is likely normal. Tricuspid Valve There is mild tricuspid valve regurgitation. There is no evidence of pulmonary hypertension. Great Vessels The asc aorta and aortic arch are normal in size. Venous The inferior vena cava is mildly dilated and collapses greater than 50% with inspiration. Pericardium/Pleural There is no evidence of pericardial effusion. Prior Study Comparison Changes noted compared to prior study dated: 03/06/2022. Decrease in LVEF. Recommendations, Care & Conclusions No obvious valvular pathology seen on this study. Measurements 2D Linear Measurements IVSd: 1.25 0.6-0.9/0.6-1.0 cm LVIDd: 5.06 3.9-5.3/4.2-5.9 cm LVIDd Index: 2.65 2.4-3.2/2.2-3.1 cm/m2 LVIDs: 3.28 2.0-3.6 cm LVPWd: 0.87 0.7-1.1 cm LA Diam: 3.40 2.7-3.8/3.0-4.0 cm LAIDs Index: 1.78 1.5-2.3 cm/m2 LV Mass: 250.05 67-162/88-224 g LV Mass Index: 130.92 43-95/49-115 g/m2 LVOT Diam: 2.10 3.0+(-)1.3 cm 2D Systolic Function EF 4C: 48.30 >55% EF 2C: 52.30 >55% EF BiP: 50.80 >55% Mitral Valve MV Pk E: 0.84 MV PK A: 0.68 MV Decel Time: 201.00 E/A: 1.20 E'Lateral: 5.00 E'Medial: 4.13 E/E' Med: 20.20 E/E' Lat: 16.70 PHT: 59.00 MVA PHT: 3.73 Decel [place]: 4.15 Aortic Valve AoV Pk Roger: 1.34 AoV Mn Roger: 0.97 AoV VTI: 0.31 AoV Pk Grad: 7.00 Aov Mn Grad: 4.00 KATI Cont.VTI: 2.34 LVOT LVOT Pk Roger: 0.94 LVOT Mn Roger: 0.64 LVOT VTI: 0.21 LVOT Pk Grad: 4.00 LVOT Mn Grad: 2.00 LVOT Diam: 2.10 LVOT Area: 3.46 Diastolic Function MV Pk E: 0.84 MV Pk A: 0.68 E/A: 1.20 E'Medial: 4.13 E/E' Med: 20.20 E' Laterial: 5.00 E/E' Lat: 16.70 Right Ventricle TAPSE (mm): 23.50 TVS' Roger: 9.68 Tricuspid Valve TR Pk Roger: 2.63 TR Pk Grad: 28.00 RA Press: 8.00 RVSP: 36.00 Great Vessels Aorta Sinus of Valsalva: 3.24 2.0-3.[address] [place]: 2.50 1.7-3.4 cm Ao Asc: 2.80 2.1-3.4 cm Ao Arch: 3.00 Updated in Other Vendor System with Status of Final Nelson Woodard MD electronically signed on 06/20/2025 3:17:44 PM with status of Final
== END ==
LOC: HO.CARD 11:03
PROVIDERS: PCP Internal Medicine; Visit Provider Internal Medicine Cardiovascular Disease
DX: I47.29 Other ventricular tachycardia (principal)
CPT/HCPCS: 93306; Q9957

== ENCOUNTER → 2025-06-20 11:06 | Outpatient (BNV) | payer OTHER, SELFPAY | PROVIDERS: PCP Internal Medicine; Visit Provider Internal Medicine | DX: I42.2 Other hypertrophic cardiomyopathy (principal) | CPT/HCPCS: 93306 ==

== ENCOUNTER 2025-07-08 13:27 | Outpatient (AMB) | payer OTHER, SELFPAY ==
--- NOTE | 2025-07-08 13:50 | MHC.OFFVIS ---
Vital Signs 07/08/25 13:51 Height 5 ft 6 in Weight 182 lb 15.739 oz BMI 29.5 BP 140/68 H Blood Pressure Location Lt brachial Position Sitting Pulse 78 Pulse Source Pulse Oximeter Intake Visit Reasons: f/u echo result and bp check per NS Allergies No Known Allergies (No Known Allergies*) Allergy (Verified 05/03/25 15:25) Medication List - Last Reconciled 07/08/25 by David Boggs NP blood pressure kit-extra large As directed If xl is not covered order large cuff cholecalciferol (vitamin D3) 25 mcg PO DAILY metoprolol succinate ER (Toprol XL) 50 mg PO DAILY multivitamin (Daily Multi-Vitamin tablet) 1 tab PO DAILY pravastatin 40 mg PO DAILY valsartan 40 mg PO BID HPI Comments Details: This is a 65-year-old female patient who is coming in to discuss the results of her echocardiogram. Patient with a history of complete heart block status post permanent pacemaker and NSVT. Today, patient reports intermittent shortness of breath on exertion without any other associated symptoms of exertional chest pain, palpitations, dizziness, orthopnea, PND, leg edema, racing overload or syncope. Given recent echo study showing reduced EF, patient was started on valsartan b.i.d. however patient is only taking it daily. Patient is otherwise reporting compliance with all her medications. [facility] Medical History Abnormal x-ray Left shoulder pain Annual physical exam Abnormal SPEP Abnormal echocardiogram Complete heart block Cardiac pacemaker in situ Vitamin D deficiency Hypercalcemia Multinodular thyroid Surgical History Hx of cardiac pacemaker Hx of cholecystectomy Hx of tubal ligation Family History Mother Diabetes CVD (cardiovascular disease) Stroke Myocardial infarction Maternal Grandmother Diabetes Father Unknown family medical history Social History (Updated 05/03/25 @ 15:27 by JIAN Price) Housing: Apartment Are you a primary childcare center administrator to a significant other at home: No Alcohol intake: current Alcohol intake frequency: holidays/special occasions only Patient Tobacco Use Status: Never used Tobacco e-Cigarette/Vaping Use: Never Used Current occupational status: employed Current occupation: rt hand / [employer] Review of Systems Const Denies weakness ENT Denies dizziness Card Denies chest pain, Denies chest pain with activity, Denies syncope, Denies rapid heart rate, Denies pedal edema, Denies edema, Denies leg edema, Denies lightheadedness, Denies palpitations, Denies dyspnea, Denies dyspnea on exertion and Denies orthopnea Resp Denies cough, Denies dyspnea and Denies dyspnea on exertion GI Denies hematochezia and Denies change in stool character Musc Denies abnormal gait, Denies muscle cramps, Denies muscle weakness, Denies numbness, Denies radiating pain into limb and Denies tingling Neuro Denies abnormal gait, Denies dizziness, Denies syncope, Denies numbness, Denies tingling and Denies weakness Endo Denies palpitations Physical Exam Vital Signs: Last Vital Signs Pulse 78 07/08/25 13:51 BP 140/68 H 07/08/25 13:51 BMI result Body Mass Index 29.5 Const General: cooperative, healthy appearing, comfortable and no acute distress Orientation/consciousness: patient oriented x3 HEENT Head: Yes normal to inspection Neck Neck: Yes normal visual inspection, Yes trachea midline and Yes supple Chest Chest palpation & inspection: normal inspection of the chest Resp Effort & Inspection: normal respiratory effort Auscultation: clear to auscultation bilaterally, no crackles, no rales, no rhonchi and no wheezes Cardio Jugular venous distension: no JVD Palpation: normal PMI Rate: regular rate Rhythm: regular rhythm Heart sounds: S1 normal heart sound present, S2 normal heart sound present, no click, no gallops, no murmurs and no rubs Peripheral pulses: Peripheral pulses 2+ throughout GI Inspection: Yes normal to inspection Palpation (GI): Soft to palpation Auscultation: normal bowel sounds Skin General skin exam: no rashes or lesions noted Neuro General: patient oriented x3 Extrem General: Yes normal to inspection, No no pedal edema and No calf tenderness Psych Appearance: grossly normal Mental Status: mental status grossly normal Speech and movement: Normal speech and movement present Assessment & Plan Assessment & Plan (1) Cardiomyopathy: Code(s): I42.9 - Cardiomyopathy, unspecified Category: Medical Plan: 06/20/2025-echo study showed a mildly decreased LV systolic function with an ejection fraction between 45-50%. On her pacemaker transmission, patient was noted to have 1 episode of NSVT. Her low EF could be related to this however, given her reports of shortness of breath, we will proceed with a myocardial perfusion study with a pharmacologic agent. If this is negative then we may consider a cardiac MRI. Patient was started on valsartan b.i.d. however is only taking it daily. Advised to increase it to b.i.d.. No recent lipid profile, therefore we will update this. (2) Abnormal echocardiogram: Code(s): R93.1 - Abnormal findings on diagnostic imaging of heart and coronary circulation Category: Medical Plan: As above. (3) Cardiac pacemaker in situ: Code(s): Z95.0 - Presence of cardiac pacemaker Category: Medical Plan: History of complete heart block status post Dual-chamber [employer]'s permanent pacemaker. We will monitor this remotely. (4) Nonsustained ventricular tachycardia: Code(s): I47.29 - Other ventricular tachycardia Category: Medical Plan: Patient had 1 episode of the NSVT noted on her pacemaker transmission. Continue metoprolol therapy (5) Hypertension: Code(s): I10 - Essential (primary) hypertension Category: Medical Plan: Blood pressure today is elevated. Looking back, patient had elevated blood pressures the last 3 times as well. Patient was recently started on valsartan and have been advised to increase it to b.i.d.. Advised monitoring blood pressures at home with a goal less than 130/80. Patient to return in 1 month for blood pressure check with the nurse. Advised heart healthy diet, regular exercise, losing weight, med compliance, adequate hydration, stress medication strategies, avoiding caffeinated beverages, and management of vascular risk factors. Patient will follow up after stress test. In the interim, patient will call the office with any concerns or change in symptoms. Advised to seek ER care in case of exertional chest pain not resolved with rest. This note was generated using voice recognition software. While every effort has been made to ensure accuracy and proper spectrograph operator, there may be occasional errors that could affect the content or meaning of the described symptoms. Orders: Orders CA lexiscan stress w yonatan Today I42.9 - Cardiomyopathy, unspecified Lipid Panel Today I42.9 - Cardiomyopathy, unspecified Basic Metabolic Panel Today I42.9 - Cardiomyopathy, unspecified Coding Level of Care Code Est Pt Level 4 (45359) Complex EM visit Add On G2211 Diagnoses Cardiomyopathy I42.9 Abnormal echocardiogram R93.1 Cardiac pacemaker in situ Z95.0 Nonsustained ventricular tachycardia I47.29 Hypertension I10 Time Spent (min) 32 Comment Time spent in reviewing the chart, test results, assessment, counseling and documentation.
[2025-07-08 13:51] VITALS: BP 140/68; PULSE 78; BMI 29.5
== END 2025-07-08 14:23 | disposition home or self-care (01) ==
LOC: HO.HCS 13:28
PROVIDERS: PCP Internal Medicine
DX: I42.9 Cardiomyopathy, unspecified (principal); R93.1 Abnormal findings on diagnostic imaging of heart and coronary circulation; Z95.0 Presence of cardiac pacemaker; I47.29 Other ventricular tachycardia; I10 Essential (primary) hypertension
CPT/HCPCS: 99214

== ENCOUNTER 2025-07-14 08:16 | Outpatient (REF) | payer OTHER, SELFPAY ==
[2025-07-14 09:29] LABS: Anion Gap 9 (12-20); Blood Urea Nitrogen 17 mg/dL (9-16); Calcium 9.4 mg/dL (8.4-10.2); Carbon Dioxide 30 mmol/L (22-29); Chloride 103 mmol/L (96-108); Cholesterol 200 mg/dL (<200); Estimated Glomerular Filt Rate > 60; HDL Cholesterol 45 mg/dL (>40); Potassium 4.2 mmol/L (3.3-5.1); Sodium 138 mmol/L (135-145); Triglycerides 126 mg/dL (<150)
== END 2025-07-14 08:17 | disposition home or self-care (01) ==
LOC: HO.LAB 08:16
PROVIDERS: PCP Internal Medicine
DX: I42.9 Cardiomyopathy, unspecified (principal); Z13.6 Encounter for screening for cardiovascular disorders
CPT/HCPCS: 36415; 80048; 80061

== ENCOUNTER → 2025-07-28 23:59 | Outpatient (BNV) | payer OTHER, SELFPAY ==
--- NOTE | 2025-08-02 14:53 | A.OFFVIS_ITS ---
Intake Visit Reasons: Remote device check- [facility] Allergies No Known Allergies (No Known Allergies*) Allergy (Verified 05/03/25 15:25) PFSH Medical History Abnormal x-ray Left shoulder pain Annual physical exam Abnormal SPEP Abnormal echocardiogram Complete heart block Cardiac pacemaker in situ Vitamin D deficiency Hypercalcemia Multinodular thyroid Surgical History Hx of cardiac pacemaker Hx of cholecystectomy Hx of tubal ligation Family History Mother Diabetes CVD (cardiovascular disease) Stroke Myocardial infarction Maternal Grandmother Diabetes Father Unknown family medical history Social History (Updated 05/03/25 @ 15:27 by JIAN Price) Housing: Apartment Are you a primary acute care certified nursing assistant to a significant other at home: No Alcohol intake: current Alcohol intake frequency: holidays/special occasions only Patient Tobacco Use Status: Never used Tobacco e-Cigarette/Vaping Use: Never Used Current occupational status: employed 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 Pacemaker function is adequate. Patient ventricularly pacer dependent [id number] Cardiac Device Interrogation, pacemaker Procedure code (CPT) selection complete Assessment & Plan Assessment & Plan (1) Cardiac pacemaker in situ: Code(s): Z95.0 - Presence of cardiac pacemaker Category: Medical Plan: See above Coding Level of Care Code Procedure Only Diagnoses Cardiac pacemaker in situ Z95.0 CPT Codes Cardiac Device Check - Cardiac Device 12: [id number] Cardiac Device Interrogation, pacemaker ([id number])
== END ==
PROVIDERS: PCP Internal Medicine; Visit Provider Internal Medicine Cardiovascular Disease
DX: Z45.018 Encounter for adjustment and management of other part of cardiac pacemaker (principal)
CPT/HCPCS: 93294

== ENCOUNTER → 2025-11-11 16:05 | Outpatient (BNV) | payer OTHER, SELFPAY | PROVIDERS: PCP Internal Medicine; Visit Provider Internal Medicine Cardiovascular Disease | DX: Z45.018 Encounter for adjustment and management of other part of cardiac pacemaker (principal) | CPT/HCPCS: 93294 ==